=== PATIENT | female | born 1955 | race Caucasian/White ===

== ENCOUNTER 2018-03-04 01:05 | Observation (INO) | payer MEDICAID, OTHER ==
--- NOTE | 2018-03-04 02:04 | EDM.PDOC ---
ED HPI GENERAL MEDICAL PROBLEM - General Chief Complaint: Abdominal Pain Stated Complaint: ABDOMINAL PAIN Time Seen by Provider: 03/04/18 02:02 - History of Present Illness INITIAL COMMENTS - FREE TEXT/NARRATIVE: HISTORY AND PHYSICAL: History of present illness: Patient's a 62-year-old female who presents with lower abdominal discomfort after intercourse tonight she denies any other concerns been no fever chills nausea vomiting no other trauma or concern Review of systems: As per history of present illness and below otherwise all systems reviewed and negative. Past medical history: As per history of present illness and as reviewed below otherwise noncontributory. Surgical history: As per history of present illness and as reviewed below otherwise noncontributory. Social history: No reported history of drug or alcohol abuse. Family history: As per history of present illness and as reviewed below otherwise noncontributory. Physical exam: HEENT: Atraumatic, normocephalic, pupils reactive, negative for conjunctival pallor or scleral icterus, mucous membranes moist, throat clear, neck supple, nontender, trachea midline. Lungs: Clear to auscultation, breath sounds equal bilaterally, chest nontender. Heart: S1S2, regular, negative for clicks, rubs, or JVD. Abdomen: Soft, nondistended, nonlocalized lower abdominal tenderness Negative for masses or hepatosplenomegaly. Negative for costovertebral tenderness. Pelvis: Stable nontender. Genitourinary: Deferred. Rectal: Deferred. Extremities: Atraumatic, negative for cords or calf pain. Neurovascular unremarkable. Neuro: Awake, alert, oriented. Cranial nerves II through XII unremarkable. Cerebellum unremarkable. Motor and sensory unremarkable throughout. Exam nonfocal. Diagnostics: CBC CMP CT abdomen and pelvis UA Therapeutics: None Impression: #1 medical screening exam #2 postcoital abdominal/pelvic pain #3 pelvic mass Definitive disposition and diagnosis as appropriate pending reevaluation and review of above. 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 ED EXAM, GENERAL - Physical Exam Exam: See Below (See dictation) Course - Vital Signs Last Recorded V/S: Last Vital Signs Temp 36.1 C 03/04/18 01:05 Pulse 83 03/04/18 01:05 Resp 22 H 03/04/18 01:05 BP 124/90 03/04/18 01:05 Pulse Ox 96 03/04/18 01:05 - Orders/Labs/Meds Orders: Active Orders 24 hr Category Date Time Status Abdomen Pelvis wo Cont [CT] Stat Exams 03/04/18 01:10 Taken CULTURE URINE [RM] Stat Lab 03/04/18 02:15 Ordered DRUG SCREEN, URINE [URCHEM] Stat Lab 03/04/18 02:15 Ordered UA W/MICROSCOPIC [URIN] Stat Lab 03/04/18 02:15 Ordered Labs: Laboratory Tests 03/04/18 03/04/18 03/04/18 Range/Units 01:10 01:10 02:15 WBC 10.79 (4.0-11.0) K/uL RBC 4.79 (4.30-5.90) M/uL Hgb 14.1 (12.0-16.0) g/dL Hct 42.8 (36.0-46.0) % MCV 89.4 (80.0-98.0) fL MCH 29.4 (27.0-32.0) pg MCHC 32.9 (31.0-37.0) g/dL RDW Std Deviation 41.8 (28.0-62.0) fl RDW Coeff of Clarence 13 (11.0-15.0) % Plt Count 365 (150-400) K/uL MPV 9.30 (7.40-12.00) fL Neut % (Auto) 46.1 L (48.0-80.0) % Lymph % (Auto) 39.0 (16.0-40.0) % [place] % (Auto) 9.2 (0.0-15.0) % Eos % (Auto) 4.9 (0.0-7.0) % Baso % (Auto) 0.8 (0.0-1.5) % Neut # (Auto) 5.0 (1.4-5.7) K/uL Lymph # (Auto) 4.2 H (0.6-2.4) K/uL [place] # (Auto) 1.0 H (0.0-0.8) K/uL Eos # (Auto) 0.5 (0.0-0.7) K/uL Baso # (Auto) 0.1 (0.0-0.1) K/uL Sodium 141 (136-145) mmol/L Potassium 4.2 (3.5-5.1) mmol/L Chloride 105 (98-107) mmol/L Carbon Dioxide 25.7 (21.0-32.0) mmol/L BUN 24 H (7.0-18.0) mg/dL Creatinine 1.1 H (0.6-1.0) mg/dL Est Cr Clr Drug Dosing TNP Estimated GFR (MDRD) 50.5 ml/min Glucose 108 H (74-106) mg/dL Calcium 9.3 (8.5-10.1) mg/dL Total Bilirubin 0.3 (0.2-1.0) mg/dL AST 26 (15-37) IU/L ALT 20 (14-63) IU/L Alkaline Phosphatase 96 (46-116) U/L Total Protein 6.9 (6.4-8.2) g/dL Albumin 3.3 L (3.4-5.0) g/dL Globulin 3.6 H (2.0-3.5) g/dL Albumin/Globulin Ratio 0.9 L (1.3-2.8) Urine Color YELLOW Urine Appearance SLT CLOUDY Urine pH 5.5 (5.0-8.0) Ur Specific [place] 1.025 (1.001-1.035) Urine Protein NEGATIVE (NEGATIVE) mg/dL Urine Glucose (UA) NEGATIVE (NEGATIVE) mg/dL Urine Ketones NEGATIVE (NEGATIVE) mg/dL Urine Occult Blood TRACE-LYSED (NEGATIVE) Urine Nitrite NEGATIVE (NEGATIVE) Urine Bilirubin NEGATIVE (NEGATIVE) Urine Urobilinogen 0.2 (<2.0) EU/dL Ur Leukocyte Esterase TRACE (NEGATIVE) Urine RBC 0-3 (0-2/HPF) Urine WBC 3-5 (0-5/HPF) Ur Epithelial Cells MODERATE (NONE-FEW) Urine Bacteria FEW (NEGATIVE) Urine Opiates Screen (NEGATIVE) Ur Oxycodone Screen (NEGATIVE) Urine Methadone Screen (NEGATIVE) Ur Barbiturates Screen (NEGATIVE) Ur Phencyclidine Scrn (NEGATIVE) Ur Amphetamine Screen (NEGATIVE) U Methamphetamines Scrn (NEGATIVE) U Benzodiazepines Scrn (NEGATIVE) U Cocaine Metab Screen (NEGATIVE) U Marijuana (THC) Screen (NEGATIVE) 03/04/18 Range/Units 02:15 WBC (4.0-11.0) K/uL RBC (4.30-5.90) M/uL Hgb (12.0-16.0) g/dL Hct (36.0-46.0) % MCV (80.0-98.0) fL MCH (27.0-32.0) pg MCHC (31.0-37.0) g/dL RDW Std Deviation (28.0-62.0) fl RDW Coeff of [place] (11.0-15.0) % Plt Count (150-400) K/uL MPV (7.40-12.00) fL Neut % (Auto) (48.0-80.0) % Lymph % (Auto) (16.0-40.0) % [place] % (Auto) (0.0-15.0) % Eos % (Auto) (0.0-7.0) % Baso % (Auto) (0.0-1.5) % Neut # (Auto) (1.4-5.7) K/uL Lymph # (Auto) (0.6-2.4) K/uL [place] # (Auto) (0.0-0.8) K/uL Eos # (Auto) (0.0-0.7) K/uL Baso # (Auto) (0.0-0.1) K/uL Sodium (136-145) mmol/L Potassium (3.5-5.1) mmol/L Chloride (98-107) mmol/L Carbon Dioxide (21.0-32.0) mmol/L BUN (7.0-18.0) mg/dL Creatinine (0.6-1.0) mg/dL Est Cr Clr Drug Dosing Estimated GFR (MDRD) ml/min Glucose (74-106) mg/dL Calcium (8.5-10.1) mg/dL Total Bilirubin (0.2-1.0) mg/dL AST (15-37) IU/L ALT (14-63) IU/L Alkaline Phosphatase (46-116) U/L Total Protein (6.4-8.2) g/dL Albumin (3.4-5.0) g/dL Globulin (2.0-3.5) g/dL Albumin/Globulin Ratio (1.3-2.8) Urine Color Urine Appearance Urine pH (5.0-8.0) Ur Specific [place] (1.001-1.035) Urine Protein (NEGATIVE) mg/dL Urine Glucose (UA) (NEGATIVE) mg/dL Urine Ketones (NEGATIVE) mg/dL Urine Occult Blood (NEGATIVE) Urine Nitrite (NEGATIVE) Urine Bilirubin (NEGATIVE) Urine Urobilinogen (<2.0) EU/dL Ur Leukocyte Esterase (NEGATIVE) Urine RBC (0-2/HPF) Urine WBC (0-5/HPF) Ur Epithelial Cells (NONE-FEW) Urine Bacteria (NEGATIVE) Urine Opiates Screen NEGATIVE (NEGATIVE) Ur Oxycodone Screen NEGATIVE (NEGATIVE) Urine Methadone Screen NEGATIVE (NEGATIVE) Ur Barbiturates Screen NEGATIVE (NEGATIVE) Ur Phencyclidine Scrn NEGATIVE (NEGATIVE) Ur Amphetamine Screen NEGATIVE (NEGATIVE) U Methamphetamines Scrn POSITIVE (NEGATIVE) U Benzodiazepines Scrn NEGATIVE (NEGATIVE) U Cocaine Metab Screen NEGATIVE (NEGATIVE) U Marijuana (THC) Screen NEGATIVE (NEGATIVE) Departure - Departure Time of Disposition: 03:24 Disposition: Refer to Observation Condition: Good Clinical Impression: Pelvic mass, Substance abuse - Discharge Information Referrals: PCP,None [Primary Care Provider] - Forms: ED Department Discharge - My Orders Last 24 Hours: My Active Orders 03/04/18 01:10 Abdomen Pelvis wo Cont [CT] Stat 03/04/18 02:15 CULTURE URINE [RM] Stat DRUG SCREEN, URINE [URCHEM] Stat UA W/MICROSCOPIC [URIN] Stat - Assessment/Plan Last 24 Hours: My Active Orders 03/04/18 01:10 Abdomen Pelvis wo Cont [CT] Stat 03/04/18 02:15 CULTURE URINE [RM] Stat DRUG SCREEN, URINE [URCHEM] Stat UA W/MICROSCOPIC [URIN] Stat
[2018-03-04 02:06] LABS: CHLORIDE,CL 105 mmol/L (98-107); SODIUM,NA 141 mmol/L (136-145)
[2018-03-04] MEDS ORDERED: Acetaminophen 325 MG Tab PO PRN (07:31)
[2018-03-04] MEDS ORDERED: Ondansetron 4 MG Tab.DIS PO PRN (07:31)
[2018-03-04] MEDS ORDERED: Sodium Chloride 0.9% 2.5 ML Syringe FLUSH PRN (07:31)
[2018-03-04] MEDS ORDERED: Albuterol 8 GM Inhaler INH PRN (07:33)
--- NOTE | 2018-03-04 07:36 | PCM.HP ---
H&P History of Present Illness - General Date of Service: 03/04/18 Admit Problem/Dx: Admission Diagnosis/Problem Admission Diagnosis/Problem Pelvic mass Source of Information: Patient History Limitations: Reports: No Limitations - History of Present Illness Initial Comments - Free Text/Narative: This 62 year old female, , with pmh of tobacco abuse, substance abuse, and asthma presented to the ED with concerns of lower abdominal and pelvic pain post intercourse with her last night. She reports there was no pelvic pain during intercourse, it was after when she got up to eat and sat down to eat at the table. The pain was sharp shooting initially and spread across her lower abdomen. She denies vaginal discharge, bleeding or pain prior to this and none after either. She denies any pain prior to this, no constipation, diarrhea , fevers, chills, URI or chest pain. She reports chronic cough, she has smoked 1 -2 ppd since she was 17 years ago. She denies black or blood BMs. Denies surgeries, but has scar below umbilicus, which she has no idea wheat that is from. She reports her last pelvic/pap was 14 months ago in [place], [place], she doesn't know the name of the provider or clinic. She reports that was normal. She otherwise states her last women's health check up was 6-7 years ago. 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 She denies alcohol use. Reports smoking methamphetamine use 6 days ago and prior to the 12 months ago. Denies ever injecting any recreational drugs. Denies DM or cardiac disease. In the ED CBC WNL. BUN 24, Cr 1.1. UA negative. U tox positive for methamphetamines. VS stable. Abd/pelvis CT WO contrast revealed "13.2 x 11.7 x 13.5 cm mass in the pelvis on the right side, worrisome for ovarian mass. A pelvic ultrasound may be helpful to further evaluate this." She was admitted for Pelvic mass. No PCP in area. She is originally from [place], but moved her 3-4 days ago to be with her who is working here. She plans on staying her for the foreseeable future. And would like to establish care here. suprapubic Pain Score (Numeric/FACES): 8 - Related Data Allergies/Adverse Reactions: Allergies Allergy/AdvReac Type Severity Reaction Status Date / Time codeine Allergy Airway Verified 03/04/18 03:59 Tightness Home Medications: Home Meds Acetaminophen [Tylenol] 650 mg PO Q4H PRN tablet 03/04/18 [Rx] Albuterol [Ventolin HFA] 1 puff INH ASDIRECTED PRN 03/04/18 [History] Past Medical History HEENT History: Reports: Cataract Cardiovascular History: Reports: None. Denies: CAD, High Cholesterol, Hypertension, IA Respiratory History: Reports: Asthma. 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 Denies: Dysfunctional Uterine Bleeding : 3 Para: 3 Musculoskeletal History: Reports: None Neurological History: Reports: Migraines. Denies: CVA, TIA Psychiatric History: Reports: None Endocrine/Metabolic History: Reports: Obesity/BMI 30+. Denies: Diabetes, Type II, Hypothyroidism Hematologic History: Reports: None Immunologic History: Reports: None Oncologic (Cancer) History: Reports: None Dermatologic History: Reports: Other (See Below) Other Dermatologic History: Mass to right side of back removed X 2 years ago. - Infectious Disease History Infectious Disease History: Reports: None - Past Surgical History Head Surgeries/Procedures: Reports: None HEENT Surgical History: Reports: Cataract Surgery Cardiovascular Surgical History: Reports: None GI Surgical History: Reports: Colonoscopy Female Surgical History: Reports: None Endocrine Surgical History: Reports: None Neurological Surgical History: Reports: None Musculoskeletal Surgical History: Reports: None Dermatological Surgical History: Reports: None Social & Family History - Family History OBGYN: Reports: Other (See Below) Other OBGYN Family History: Mother of cervical cancer. Oncologic: Reports: Cervix (Mother.) - Tobacco Use Smoking Status *Q: Current Every Day Smoker Years of Tobacco use: 48 Packs/Tins Daily: 0.5 Used Tobacco, but Quit: No - Caffeine Use Caffeine Use: Reports: Coffee - Recreational Drug Use Recreational Drug Use: Yes Drug Use in Last 12 Months: Yes Recreational Drug Type: Reports: Methamphetamine Other Recreational Drug Type: Used X 5 days ago Recreational Drug Use Frequency: Weekly Recreational Drug Last Use: 6-2-17 H&P Review of Systems - Review of Systems: Review Of Systems: See Below General: Reports: No Symptoms. Denies: Fever, Chills, Malaise, Weakness, Fatigue HEENT: Reports: No Symptoms. Denies: Sinus Congestion, Sore Throat, Vertigo, Visual Changes Pulmonary: Reports: Cough (chronic). Denies: Shortness of Breath Cardiovascular: Reports: No Symptoms. Denies: Chest Pain, Palpitations, Edema, Lightheadedness Gastrointestinal: Reports: Abdominal Pain (lower abdomen, dull 2/10 currently). Denies: Black Stool, Bloody Stool, Decreased Appetite, Nausea Genitourinary: Reports: No Symptoms. Denies: Dysuria, Frequency, Burning, Pain , Urgency, Hematuria, Discharge, Dysmenorrhea Musculoskeletal: Reports: No Symptoms Skin: Reports: No Symptoms Psychiatric: Reports: No Symptoms Neurological: Reports: No Symptoms Hematologic/Lymphatic: Reports: No Symptoms Immunologic: Reports: No Symptoms Exam - Exam Exam: See Below - Vital Signs Vital Signs: Last Vital Signs Temp 98.1 F 03/04/18 03:43 Pulse 83 03/04/18 03:43 Resp 16 03/04/18 03:43 BP 120/94 H 03/04/18 03:43 Pulse Ox 95 03/04/18 03:43 Weight: 81.964 kg - Exam General: Alert, Oriented, Cooperative HEENT: Conjunctiva Clear, Mucosa Moist & [place], Posterior Pharynx Clear, Other ( poor dentition and mutliple missing teeth) Lungs: Clear to Auscultation, Normal Respiratory Effort, Wheezing (scant wheezing) Cardiovascular: Regular Rate, Regular Rhythm, Normal S1, Normal S2 GI/Abdominal Exam: Normal Bowel Sounds, Soft, No Distention, No Mass (no palpable mass, excess body habitus limits assessment), Tender (slight tenderness to palpation of lower abdomen) Back Exam: Normal Inspection, Full Range of Motion, NT Extremities: Normal Inspection, Normal Range of Motion, Non-Tender, No Pedal Edema, Normal Capillary Refill Neuro Extensive - Mental Status: Alert, Oriented x3 Neuro Extensive - Motor, Sensory, Reflexes: CN II-XII Intact, Normal Gait Psychiatric: Alert, Normal Affect, Normal Mood - Patient Data Lab Results Last 24 hrs: Laboratory Results - last 24 hr 03/04/18 03/04/18 03/04/18 Range/Units 01:10 01:10 02:15 WBC 10.79 (4.0-11.0) K/uL RBC 4.79 (4.30-5.90) M/uL Hgb 14.1 (12.0-16.0) g/dL Hct 42.8 (36.0-46.0) % MCV 89.4 (80.0-98.0) fL MCH 29.4 (27.0-32.0) pg MCHC 32.9 (31.0-37.0) g/dL RDW Std Deviation 41.8 (28.0-62.0) fl RDW Coeff of [place] 13 (11.0-15.0) % Plt Count 365 (150-400) K/uL MPV 9.30 (7.40-12.00) fL Neut % (Auto) 46.1 L (48.0-80.0) % Lymph % (Auto) 39.0 (16.0-40.0) % [place] % (Auto) 9.2 (0.0-15.0) % Eos % (Auto) 4.9 (0.0-7.0) % Baso % (Auto) 0.8 (0.0-1.5) % Neut # (Auto) 5.0 (1.4-5.7) K/uL Lymph # (Auto) 4.2 H (0.6-2.4) K/uL [place] # (Auto) 1.0 H (0.0-0.8) K/uL Eos # (Auto) 0.5 (0.0-0.7) K/uL Baso # (Auto) 0.1 (0.0-0.1) K/uL Sodium 141 (136-145) mmol/L Potassium 4.2 (3.5-5.1) mmol/L Chloride 105 (98-107) mmol/L Carbon Dioxide 25.7 (21.0-32.0) mmol/L BUN 24 H (7.0-18.0) mg/dL Creatinine 1.1 H (0.6-1.0) mg/dL Est Cr Clr Drug Dosing TNP Estimated GFR (MDRD) 50.5 ml/min Glucose 108 H (74-106) mg/dL Calcium 9.3 (8.5-10.1) mg/dL Total Bilirubin 0.3 (0.2-1.0) mg/dL AST 26 (15-37) IU/L ALT 20 (14-63) IU/L Alkaline Phosphatase 96 (46-116) U/L Total Protein 6.9 (6.4-8.2) g/dL Albumin 3.3 L (3.4-5.0) g/dL Globulin 3.6 H (2.0-3.5) g/dL Albumin/Globulin Ratio 0.9 L (1.3-2.8) Urine Color YELLOW Urine Appearance SLT CLOUDY Urine pH 5.5 (5.0-8.0) Ur Specific [place] 1.025 (1.001-1.035) Urine Protein NEGATIVE (NEGATIVE) mg/dL Urine Glucose (UA) NEGATIVE (NEGATIVE) mg/dL Urine Ketones NEGATIVE (NEGATIVE) mg/dL Urine Occult Blood TRACE-LYSED (NEGATIVE) Urine Nitrite NEGATIVE (NEGATIVE) Urine Bilirubin NEGATIVE (NEGATIVE) Urine Urobilinogen 0.2 (<2.0) EU/dL Ur Leukocyte Esterase TRACE (NEGATIVE) Urine RBC 0-3 (0-2/HPF) Urine WBC 3-5 (0-5/HPF) Ur Epithelial Cells MODERATE (NONE-FEW) Urine Bacteria FEW (NEGATIVE) Urine Opiates Screen (NEGATIVE) Ur Oxycodone Screen (NEGATIVE) Urine Methadone Screen (NEGATIVE) Ur Barbiturates Screen (NEGATIVE) Ur Phencyclidine Scrn (NEGATIVE) Ur Amphetamine Screen (NEGATIVE) U Methamphetamines Scrn (NEGATIVE) U Benzodiazepines Scrn (NEGATIVE) U Cocaine Metab Screen (NEGATIVE) U Marijuana (THC) Screen (NEGATIVE) 03/04/18 Range/Units 02:15 WBC (4.0-11.0) K/uL RBC (4.30-5.90) M/uL Hgb (12.0-16.0) g/dL Hct (36.0-46.0) % MCV (80.0-98.0) fL MCH (27.0-32.0) pg MCHC (31.0-37.0) g/dL RDW Std Deviation (28.0-62.0) fl RDW Coeff of [place] (11.0-15.0) % Plt Count (150-400) K/uL MPV (7.40-12.00) fL Neut % (Auto) (48.0-80.0) % Lymph % (Auto) (16.0-40.0) % [place] % (Auto) (0.0-15.0) % Eos % (Auto) (0.0-7.0) % Baso % (Auto) (0.0-1.5) % Neut # (Auto) (1.4-5.7) K/uL Lymph # (Auto) (0.6-2.4) K/uL [place] # (Auto) (0.0-0.8) K/uL Eos # (Auto) (0.0-0.7) K/uL Baso # (Auto) (0.0-0.1) K/uL Sodium (136-145) mmol/L Potassium (3.5-5.1) mmol/L Chloride (98-107) mmol/L Carbon Dioxide (21.0-32.0) mmol/L BUN (7.0-18.0) mg/dL Creatinine (0.6-1.0) mg/dL Est Cr Clr Drug Dosing Estimated GFR (MDRD) ml/min Glucose (74-106) mg/dL Calcium (8.5-10.1) mg/dL Total Bilirubin (0.2-1.0) mg/dL AST (15-37) IU/L ALT (14-63) IU/L Alkaline Phosphatase (46-116) U/L Total Protein (6.4-8.2) g/dL Albumin (3.4-5.0) g/dL Globulin (2.0-3.5) g/dL Albumin/Globulin Ratio (1.3-2.8) Urine Color Urine Appearance Urine pH (5.0-8.0) Ur Specific [place] (1.001-1.035) Urine Protein (NEGATIVE) mg/dL Urine Glucose (UA) (NEGATIVE) mg/dL Urine Ketones (NEGATIVE) mg/dL Urine Occult Blood (NEGATIVE) Urine Nitrite (NEGATIVE) Urine Bilirubin (NEGATIVE) Urine Urobilinogen (<2.0) EU/dL Ur Leukocyte Esterase (NEGATIVE) Urine RBC (0-2/HPF) Urine WBC (0-5/HPF) Ur Epithelial Cells (NONE-FEW) Urine Bacteria (NEGATIVE) Urine Opiates Screen NEGATIVE (NEGATIVE) Ur Oxycodone Screen NEGATIVE (NEGATIVE) Urine Methadone Screen NEGATIVE (NEGATIVE) Ur Barbiturates Screen NEGATIVE (NEGATIVE) Ur Phencyclidine Scrn NEGATIVE (NEGATIVE) Ur Amphetamine Screen NEGATIVE (NEGATIVE) U Methamphetamines Scrn POSITIVE (NEGATIVE) U Benzodiazepines Scrn NEGATIVE (NEGATIVE) U Cocaine Metab Screen NEGATIVE (NEGATIVE) U Marijuana (THC) Screen NEGATIVE (NEGATIVE) Result Diagrams: 03/04/18 01:10 03/04/18 01:10 - Problem List (1) Abdominal pain SNOMED Code(s): 98069095 ICD Code: R10.9 - UNSPECIFIED ABDOMINAL PAIN Status: Acute Current Visit : Yes Qualifiers: Abdominal location: lower abdomen, unspecified Qualified Code(s): R10.30 - Lower abdominal pain, unspecified (2) Pelvic mass SNOMED Code(s): 37217243 ICD Code: R19.00 - INTRA-ABD AND PELVIC SWELLING, MASS AND LUMP, UNSP SITE Status: Acute Current Visit: Yes (3) Tobacco abuse SNOMED Code(s): 234539580 ICD Code: Z72.0 - TOBACCO USE Status: Chronic Current Visit: Yes (4) Asthma SNOMED Code(s): 230707621 ICD Code: J45.909 - UNSPECIFIED ASTHMA, UNCOMPLICATED Status: Chronic Current Visit: Yes Qualifiers: Asthma severity: mild Asthma persistence: intermittent Asthma complication type: uncomplicated Qualified Code(s): J45.20 - Mild intermittent asthma, uncomplicated (5) Substance abuse SNOMED Code(s): 68893867 ICD Code: F19.10 - OTHER PSYCHOACTIVE SUBSTANCE ABUSE, UNCOMPLICATED Status : Chronic Current Visit: Yes Problem List Initiated/Reviewed/Updated: Yes Orders Last 24hrs: Active Orders 24 hr Category Date Time Status Patient Status [ADT] Stat ADT 03/04/18 03:28 Active Intake and Output [RC] QSHIFT Care 03/04/18 07:31 Active May Shower [RC] ASDIRECTED Care 03/04/18 07:31 Active Oxygen Therapy [RC] PRN Care 03/04/18 07:31 Active Up With Assistance [RC] ASDIRECTED Care 03/04/18 07:31 Active Vital Signs [RC] Q4H Care 03/04/18 07:31 Active Regular Diet [DIET] Diet 03/04/18 Breakfast Active Abdomen Pelvis wo Cont [CT] Stat Exams 03/04/18 01:10 Taken CULTURE URINE [RM] Stat Lab 03/04/18 02:15 Ordered DRUG SCREEN, URINE [URCHEM] Stat Lab 03/04/18 02:15 Ordered UA W/MICROSCOPIC [URIN] Stat Lab 03/04/18 02:15 Ordered Acetaminophen [Tylenol] Med 03/04/18 07:31 Ordered 650 mg PO Q4H PRN Albuterol [Ventolin HFA] Med 03/04/18 07:33 Ordered DOSE gm INH ASDIRECTED PRN Ondansetron [Zofran ODT] Med 03/04/18 07:31 Ordered 4 mg PO Q4H PRN Sodium Chloride 0.9% [Saline Flush] Med 03/04/18 07:31 Ordered 2.5 ml FLUSH ASDIRECTED PRN Saline Lock Insert [OM.PC] Routine Oth 03/04/18 07:31 Ordered Sequential Compression Device [OM.PC] Per Unit Routine Oth 03/04/18 07:32 Ordered Resuscitation Status Routine Resus Stat 03/04/18 07:31 Ordered Medication Orders Acetaminophen (Tylenol) 650 mg PO Q4H PRN PRN Reason: Pain (mild 1-3) Albuterol (Ventolin Hfa) 8 gm INH ASDIRECTED PRN PRN Reason: Dyspnea Ondansetron HCl (Zofran Odt) 4 mg PO Q4H PRN PRN Reason: nausea, able to take PO Sodium Chloride (Saline Flush) 2.5 ml FLUSH ASDIRECTED PRN PRN Reason: Keep Vein Open Assessment/Plan Comment:: This 62 year old female admitted with lower abdominal pain, found to have pelvic mass. 1. Pelvic mass: Pain is improved. Has not needed any medication for pain and is denying needing anything now. Spoke with Dr Espinosa, [employer] FI[employer] SERVICE TECHNICIAN, recommends CA 125 for now and he will see patient in between surgical cases. I appreciated his consultation with this patient. 2. Asthma: Stable. Has chronic cough. Continue inhaler PRN. 3. Tobacco abuse: Counseled on smoking cessation, doesn't feel like quitting now and declined nicotine patch reporting "They don't work." Educated on smoking policy while admitted in the hospital, she verbalized understanding. VTE prophylaxis: SCDs Dispo: potentially later today, after consultation with Dr Espinosa. Discharge Plan Discharge Diagnoses: Pelvic Mass Asthma Tobacco abuse Methamphetamine abuse Ofelia (Tabatha) was seen by Dr Espinosa. Will establish follow up appointment with Dr Espinosa. CA 125 normal, possible cystic in nature and Dr Espinosa recommends removal as outpatient. Tabatha agrees with this and is very eager to be discharged home. She does not need any pain medications and recommended to return to ED or clinic if concerns should arise. Tylenol for pain PRN. She was highly encouraged to stop smoking due to chronic cough. She reports she is trying slowly but declines assistance with this at this time.
--- NOTE | 2018-03-04 10:52 | CT ---
EXAM DATE: 03/04/18 PATIENT'S AGE: 62 Patient: ANABELA HALL Facility: [place], [place] Site . Site : 1955 Study: CT Abdomen/Pelvis [id number]/7/2018 2:41:50 AM Ordering Physician: Gareth Escalera Final Report: INDICATION: Abdominal pain. TECHNIQUE: Multiple axial images were obtained from the diaphragm to the symphysis pubis without contrast. Sagittal and coronal re-formatted images were obtained. COMPARISON: None. FINDINGS: The visualized portion of the lung bases are clear. The liver, spleen, pancreas , gallbladder and adrenal glands are of unremarkable nonenhanced CT appearance. There is no stone identified in the kidneys or hydronephrosis. There is no evidence of a bowel obstruction. There is a moderate amount of stool in the colon. The abdominal aorta is normal in caliber. There are atherosclerotic calcifications. There is no adenopathy. There are degenerative changes in the spine with grade 1 spondylolysis of L4 on L5. There is a 13.2 x 11.7 x 13.5 cm mass in the right the pelvis which is likely ovarian. The appendix is visualized in the right lower quadrant and is unremarkable. IMPRESSION: 13.2 x 11.7 x 13.5 cm mass in the pelvis on the right side, worrisome for ovarian mass. A pelvic ultrasound may be helpful to further evaluate this. Dictated by Noe Montero MD @ 03/04/2018 3:12:31 AM Please note that all CT scans at this facility use dose modulation, iterative reconstruction, and/or weight-based dosing when appropriate to reduce radiation dose to as low as reasonably achievable. Dictated by: Noe Montero MD @ 03/04/2018 03:12:46 (Electronic Signature) Report Signed by Proxy. [facility]
--- NOTE | 2018-03-05 12:48 | CONS ---
DATE OF CONSULTATION: 03/04/2018 DATE OF : 1955 PRIMARY CARE PHYSICIAN: None PCP REQUESTING PHYSICIAN: Farhat Parra MD This patient is 62-year-old patient, she is para 3-0-0-3, all of them delivered by normal spontaneous vaginal delivery. She recently moved to our area. She is admitted through the emergency room for sudden onset of pelvic pain. The patient is evaluated in the emergency room. She had a CAT scan, which shows a rather large 15 cm right ovarian mass. The patient is admitted for observation. The pain is relieved with pain medication and her symptoms resolved. At the time I was consulted and examined the patient, her vital sign was stable. Her abdomen is nontender and there is no rebound tenderness, although you can feel a mass in the right lower quadrant. I did not do pelvic examination because of not availability of pelvic examination room in the Med/Surg. However, I was planning to do that tomorrow and I see her in the office. I referred for the purpose of this consultation, I reviewed the CAT scan for the patient which confirmed that she had a 15-cm clear, multiseptated ovarian mass arising from the right ovary. There is no ascites. The mass is not adherent or attached to any of the abdominal or pelvic organ. Her CA-125 is 11. 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 However, we cannot rule out cyst adenocarcinoma, but it is most likely that the patient has a cyst adenoma and this mass needs to be removed. She can have her surgery scheduled electively. I recommend for her at this time to be discharged. There is not any other medical issue and to be seen in the office before we can further evaluate her by doing a pelvic exam and then schedule her for surgery electively. MERCEDES / JOSE MIGUEL /[id number]
== END 2018-03-04 10:20 | disposition home or self-care (01) ==
LOC: MW.ED 01:05 → MW.MS 03:28
PROVIDERS: ADMIT Internal Medicine; ATTEND Internal Medicine
DX: R10.30 Lower abdominal pain, unspecified (principal); R19.00 Intra-abdominal and pelvic swelling, mass and lump, unspecified site; J45.20 Mild intermittent asthma, uncomplicated; F19.10 Other psychoactive substance abuse, uncomplicated; K21.9 Gastro-esophageal reflux disease without esophagitis; G43.909 Migraine, unspecified, not intractable, without status migrainosus; E66.9 Obesity, unspecified; F17.210 Nicotine dependence, cigarettes, uncomplicated; Z88.5 Allergy status to narcotic agent; Z68.30 Body mass index [BMI] 30.0-30.9, adult
CPT/HCPCS: 74176; 74176-26; 80053; 80305; 81001; 85025; 86304; 99283; 99285-25; G0378

== ENCOUNTER 2018-03-16 18:05 | Emergency (ER) | payer MEDICAID ==
--- NOTE | 2018-03-16 18:58 | EDM.PDOC ---
ED HPI GENERAL MEDICAL PROBLEM - General Chief Complaint: General Stated Complaint: CRAMPING REALLY BAD Time Seen by Provider: 03/16/18 18:58 Source of Information: Reports: Patient History Limitations: Reports: No Limitations - History of Present Illness INITIAL COMMENTS - FREE TEXT/NARRATIVE: HISTORY AND PHYSICAL: History of present illness: 62-year-old female presenting to emergency department with right lower quadrant pain starting last evening with previously known finding of a large ovarian mass as well as methamphetamine abuse. Patient was recently admitted here at the beginning of the month for abdominal pain was found to have a ovarian mass by CT. Labs showed that this was a nonmalignant tumor and she is scheduled to have surgery done Dr. Espinosa on April 01. Patient states that last night around 11 PM she had sharp stabbing pain in her right lower quadrant with some radiation to right mid and umbilical. Previously she did not have this pain but had some cramping initially when she came in and was found to have a ovarian mass. States that the pain is different and it is intermittent like "cramping". Has had 2 days of diarrhea having 3 watery stools yesterday and 2 watery stools today. She denies any recent foreign travel, change in diet, or other members of family having similar symptoms. There is no blood in the stool or dark tarry stools. She denies any associated fever but has been sweaty. She denies any nausea or vomiting. She currently denies any chest pain, palpitations, shortness of breath, syncopal episodes, focal neurologic deficits. Current pain is 8 out of 10. Patient is allergic to codeine. Review of systems: As per history of present illness and below otherwise all systems reviewed and negative. Past medical history: As per history of present illness and as reviewed below otherwise noncontributory. Surgical history: As per history of present illness and as reviewed below otherwise noncontributory. Social history: No reported history of drug or alcohol abuse. Family history: As per history of present illness and as reviewed below otherwise noncontributory. Physical exam: HEENT: Atraumatic, normocephalic, pupils reactive, negative for conjunctival pallor or scleral icterus, mucous membranes moist, throat clear, neck supple, nontender, trachea midline. Lungs: Clear to auscultation, breath sounds equal bilaterally, chest nontender. Heart: S1S2, regular, negative for clicks, rubs, or JVD. Abdomen: Tender to palpation right lower quadrant as well as right mid and umbilical, Soft, there is noted some fullness in the right midabdomen. no hepatosplenomegaly. Negative for costovertebral tenderness. Pelvis: Stable nontender. Genitourinary: Deferred. Rectal: Deferred. Extremities: Atraumatic, negative for cords or calf pain. Neurovascular unremarkable. Neuro: Awake, alert, oriented. Cranial nerves II through XII unremarkable. Cerebellum unremarkable. Motor and sensory unremarkable throughout. Exam nonfocal. Diagnostics: CBC, CMP, UA/UC, abdominal CT with contrast Therapeutics: Toradol 60 mg IM 1, 1 L normal saline 1, Bentyl 20 mg by mouth 4 times a day # 12 Impression: Right adnexal mass 15.7 x 12.2 15.3 cm Abdominal pain Plan: CBC, CMP, UA were unremarkable. CT did show a large heterogeneous abdominal pelvic mass consistent with what was thought to be a neoplasm as per radiologist however patient's CA-125 previously had been negative and she is scheduled for surgery by Dr. Espinosa on 04/01/18. There is no evidence of appendicitis, diverticulitis, or bowel perforation. Patient's pain was likely secondary to her gynecologic mass. She improved dramatically with Toradol 60 mg IM and was discharged with a prescription for Bentyl 20 mg by mouth 4 times a day #12. She is instructed to follow-up with primary care physician as well as return to emergency department if she had any new or worsening symptoms. Pelvic Pain Score (Numeric/FACES): 9 - Related Data Allergies Allergy/AdvReac Type Severity Reaction Status Date / Time codeine Allergy Airway Verified 03/16/18 18:17 Tightness Home Meds: Home Meds Acetaminophen [Tylenol] 650 mg PO Q4H PRN tablet 03/04/18 [Rx] Albuterol [Ventolin HFA] 1 puff INH ASDIRECTED PRN 03/04/18 [History] Naproxen Na-Diphenhydramin HCl [Aleve Pm Caplet] 1 tab PO QPM 03/16/18 [History] Past Medical History HEENT History: Reports: Cataract Cardiovascular History: Reports: None Respiratory History: Reports: Asthma Gastrointestinal History: Reports: GERD Genitourinary History: Reports: None [employer] 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 - Infectious Disease History Infectious Disease History: Reports: None - Past Surgical History Head Surgeries/Procedures: Reports: None HEENT Surgical History: Reports: Cataract Surgery Cardiovascular Surgical History: Reports: None GI Surgical History: Reports: Colonoscopy Female Surgical History: Reports: None Endocrine Surgical History: Reports: None Neurological Surgical History: Reports: None Musculoskeletal Surgical History: Reports: None Dermatological Surgical History: Reports: None Social & Family History - Family History Family Medical History: Noncontributory : Reports: Other (See Below) Other Family History: mother cervical cancer OBGYN: Reports: Other (See Below) Other OBGYN Family History: Mother of cervical cancer. Oncologic: Reports: Cervix - Tobacco Use Smoking Status *Q: Former Smoker Used Tobacco, but Quit: Yes Month/Year Tobacco Last Used: 02/2018 Tobacco Use Comment: started patches yesterday - Caffeine Use Caffeine Use: Reports: Coffee - Recreational Drug Use Recreational Drug Use: Yes Drug Use in Last 12 Months: Yes Recreational Drug Type: Reports: Methamphetamine ED ROS GENERAL - Review of Systems Review Of Systems: ROS reveals no pertinent complaints other than HPI. ED EXAM, GENERAL - Physical Exam Exam: See Below Course - Vital Signs Last Recorded V/S: Last Vital Signs Temp 97.8 F 03/16/18 21:13 Pulse 72 03/16/18 21:13 Resp 18 03/16/18 21:13 BP 124/87 03/16/18 21:13 Pulse Ox 95 03/16/18 21:13 - Orders/Labs/Meds Orders: Active Orders 24 hr Category Date Time Status EKG Documentation Completion [RC] STAT Care 03/16/18 19:12 Inactive Abdomen Pelvis wo Cont [CT] Stat Exams 03/16/18 20:28 Taken CULTURE URINE [RM] Stat Lab 03/16/18 19:27 Ordered UA W/MICROSCOPIC [URIN] Stat Lab 03/16/18 19:27 Ordered Labs: Laboratory Tests 03/16/18 03/16/18 03/16/18 Range/Units 19:27 19:40 19:40 WBC 12.21 H (4.0-11.0) K/uL RBC 5.01 (4.30-5.90) M/uL Hgb 14.8 (12.0-16.0) g/dL Hct 44.7 (36.0-46.0) % MCV 89.2 (80.0-98.0) fL MCH 29.5 (27.0-32.0) pg MCHC 33.1 (31.0-37.0) g/dL RDW Std Deviation 42.5 (28.0-62.0) fl RDW Coeff of Clarence 13 (11.0-15.0) % Plt Count 401 H (150-400) K/uL MPV 9.40 (7.40-12.00) fL Neut % (Auto) 58.1 (48.0-80.0) % Lymph % (Auto) 29.3 (16.0-40.0) % Reagan % (Auto) 7.9 (0.0-15.0) % Eos % (Auto) 3.9 (0.0-7.0) % Baso % (Auto) 0.8 (0.0-1.5) % Neut # (Auto) 7.1 H (1.4-5.7) K/uL Lymph # (Auto) 3.6 H (0.6-2.4) K/uL Reagan # (Auto) 1.0 H (0.0-0.8) K/uL Eos # (Auto) 0.5 (0.0-0.7) K/uL Baso # (Auto) 0.1 (0.0-0.1) K/uL Nucleated RBC % 0.0 /100WBC Nucleated RBCs # 0 K/uL Sodium 141 (136-145) mmol/L Potassium 4.9 (3.5-5.1) mmol/L Chloride 104 (98-107) mmol/L Carbon Dioxide 31.7 (21.0-32.0) mmol/L BUN 19 H (7.0-18.0) mg/dL Creatinine 1.1 H (0.6-1.0) mg/dL Est Cr Clr Drug Dosing 46.38 mL/min Estimated GFR (MDRD) 50.5 ml/min Glucose 99 (74-106) mg/dL Calcium 9.8 (8.5-10.1) mg/dL Total Bilirubin 0.2 (0.2-1.0) mg/dL AST 11 L (15-37) IU/L ALT 17 (14-63) IU/L Alkaline Phosphatase 126 H (46-116) U/L Total Protein 7.4 (6.4-8.2) g/dL Albumin 3.3 L (3.4-5.0) g/dL Globulin 4.1 H (2.0-3.5) g/dL Albumin/Globulin Ratio 0.8 L (1.3-2.8) Urine Color YELLOW Urine Appearance CLEAR Urine pH 6.0 (5.0-8.0) Ur Specific [place] 1.020 (1.001-1.035) Urine Protein NEGATIVE (NEGATIVE) mg/dL Urine Glucose (UA) NEGATIVE (NEGATIVE) mg/dL Urine Ketones NEGATIVE (NEGATIVE) mg/dL Urine Occult Blood NEGATIVE (NEGATIVE) Urine Nitrite NEGATIVE (NEGATIVE) Urine Bilirubin NEGATIVE (NEGATIVE) Urine Urobilinogen 0.2 (<2.0) EU/dL Ur Leukocyte Esterase NEGATIVE (NEGATIVE) Urine RBC 0-1 (0-2/HPF) Urine WBC 0-1 (0-5/HPF) Ur Epithelial Cells MODERATE (NONE-FEW) Urine Bacteria RARE (NEGATIVE) Urine Opiates Screen (NEGATIVE) Ur Oxycodone Screen (NEGATIVE) Urine Methadone Screen (NEGATIVE) Ur Barbiturates Screen (NEGATIVE) Ur Phencyclidine Scrn (NEGATIVE) Ur Amphetamine Screen (NEGATIVE) U Methamphetamines Scrn (NEGATIVE) U Benzodiazepines Scrn (NEGATIVE) U Cocaine Metab Screen (NEGATIVE) U Marijuana (THC) Screen (NEGATIVE) 03/16/18 Range/Units 19:45 WBC (4.0-11.0) K/uL RBC (4.30-5.90) M/uL Hgb (12.0-16.0) g/dL Hct (36.0-46.0) % MCV (80.0-98.0) fL MCH (27.0-32.0) pg MCHC (31.0-37.0) g/dL RDW Std Deviation (28.0-62.0) fl RDW Coeff of Clarence (11.0-15.0) % Plt Count (150-400) K/uL MPV (7.40-12.00) fL Neut % (Auto) (48.0-80.0) % Lymph % (Auto) (16.0-40.0) % Reagan % (Auto) (0.0-15.0) % Eos % (Auto) (0.0-7.0) % Baso % (Auto) (0.0-1.5) % Neut # (Auto) (1.4-5.7) K/uL Lymph # (Auto) (0.6-2.4) K/uL Reagan # (Auto) (0.0-0.8) K/uL Eos # (Auto) (0.0-0.7) K/uL Baso # (Auto) (0.0-0.1) K/uL Nucleated RBC % /100WBC Nucleated RBCs # K/uL Sodium (136-145) mmol/L Potassium (3.5-5.1) mmol/L Chloride (98-107) mmol/L Carbon Dioxide (21.0-32.0) mmol/L BUN (7.0-18.0) mg/dL Creatinine (0.6-1.0) mg/dL Est Cr Clr Drug Dosing mL/min Estimated GFR (MDRD) ml/min Glucose (74-106) mg/dL Calcium (8.5-10.1) mg/dL Total Bilirubin (0.2-1.0) mg/dL AST (15-37) IU/L ALT (14-63) IU/L Alkaline Phosphatase (46-116) U/L Total Protein (6.4-8.2) g/dL Albumin (3.4-5.0) g/dL Globulin (2.0-3.5) g/dL Albumin/Globulin Ratio (1.3-2.8) Urine Color Urine Appearance Urine pH (5.0-8.0) Ur Specific [place] (1.001-1.035) Urine Protein (NEGATIVE) mg/dL Urine Glucose (UA) (NEGATIVE) mg/dL Urine Ketones (NEGATIVE) mg/dL Urine Occult Blood (NEGATIVE) Urine Nitrite (NEGATIVE) Urine Bilirubin (NEGATIVE) Urine Urobilinogen (<2.0) EU/dL Ur Leukocyte Esterase (NEGATIVE) Urine RBC (0-2/HPF) Urine WBC (0-5/HPF) Ur Epithelial Cells (NONE-FEW) Urine Bacteria (NEGATIVE) Urine Opiates Screen NEGATIVE (NEGATIVE) Ur Oxycodone Screen NEGATIVE (NEGATIVE) Urine Methadone Screen NEGATIVE (NEGATIVE) Ur Barbiturates Screen NEGATIVE (NEGATIVE) Ur Phencyclidine Scrn NEGATIVE (NEGATIVE) Ur Amphetamine Screen NEGATIVE (NEGATIVE) U Methamphetamines Scrn NEGATIVE (NEGATIVE) U Benzodiazepines Scrn NEGATIVE (NEGATIVE) U Cocaine Metab Screen NEGATIVE (NEGATIVE) U Marijuana (THC) Screen NEGATIVE (NEGATIVE) Meds: Medications Discontinued Medications Generic Name Dose Route Start Last Admin Trade Name Freq PRN Reason Stop Dose Admin Sodium Chloride 1,000 mls @ 999 mls/hr 03/16/18 20:01 03/16/18 20:26 Normal Saline IV 03/16/18 21:01 999 mls/hr STAT ONE Administration Ketorolac Tromethamine 60 mg 03/16/18 19:18 03/16/18 19:48 Toradol IM 03/16/18 19:19 60 mg ONETIME ONE Administration Departure - Departure Time of Disposition: 21:26 Disposition: Home, Self-Care 01 Condition: Good Clinical Impression: Abdominal mass, RLQ (right lower quadrant), Abdominal pain, right lower quadrant - Discharge Information Referrals: PCP,None [Primary Care Provider] - Forms: ED Department Discharge Additional Instructions: My general discharge The following information is given to patients seen in the emergency department who are being discharged to home. This information is to outline your options for follow-up care. We provide all patients seen in our emergency department with a follow-up referral. The need for follow-up, as well as the timing and circumstances, are variable depending upon the specifics of your emergency department visit. If you don't have a primary care physician on staff, we will provide you with a referral. We always advise you to contact your personal physician following an emergency department visit to inform them of the circumstance of the visit and for follow-up with them and/or the need for any referrals to a consulting specialist. The emergency department will also refer you to a specialist when appropriate. This referral assures that you have the opportunity for follow-up care with a specialist. All of these measure are taken in an effort to provide you with optimal care, which includes your follow-up. Under all circumstances we always encourage you to contact your private physician who remains a resource for coordinating your care. When calling for follow-up care, please make the office aware that this follow-up is from your recent emergency room visit. If for any reason you are refused follow-up, please contact the [facility] Emergency Department at and asked to speak to the emergency department charge nurse. [facility] [address] [place] [id number] Follow-up with Dr. Espinosa as scheduled. Take medication as prescribed. Return to emergency department if any new or worsening symptoms. - My Orders Last 24 Hours: My Active Orders 03/16/18 19:12 EKG Documentation Completion [RC] STAT 03/16/18 19:27 CULTURE URINE [RM] Stat UA W/MICROSCOPIC [URIN] Stat 03/16/18 20:28 Abdomen Pelvis wo Cont [CT] Stat - Assessment/Plan Last 24 Hours: My Active Orders 03/16/18 19:12 EKG Documentation Completion [RC] STAT 03/16/18 19:27 CULTURE URINE [RM] Stat UA W/MICROSCOPIC [URIN] Stat 03/16/18 20:28 Abdomen Pelvis wo Cont [CT] Stat
[2018-03-16] MEDS ORDERED: Ketorolac 60 MG/2 ML SDV IM ONE (19:18)
[2018-03-16] MEDS ORDERED: Sodium Chloride 0.9% 1,000 ML IV ONE (20:01)
--- NOTE | 2018-03-17 08:42 | CT ---
EXAM DATE: 03/16/18 PATIENT'S AGE: 62 Patient: ANABELA HALL Facility: [place], [place] Site . Site : 1955 Study: CT Abdomen/Pelvis [id number]/19/2018 8:59:01 PM Ordering Physician: Yunior Bettencourt Final Report: INDICATION: Pain. Cramping TECHNIQUE: CT abdomen and pelvis without contrast. COMPARISON: None available FINDINGS: Lower chest: Apparent mild emphysematous changes. A subcentimeter anterior right cardiophrenic lymph node. Liver: A subcentimeter posterior right hepatic low-density lesion on image 34 and apparent very subtle subcentimeter low-density lesions in the medial segment of the left hepatic lobe and caudate lobe on image 28, not well evaluated. Spleen: Unremarkable. Pancreas: A punctate calcification in the proximal pancreatic body could be postinflammatory. Gallbladder and bile ducts: Unremarkable. Adrenal glands: Unremarkable. Kidneys: No hydronephrosis or discrete, measurable urolithiasis. A subcentimeter left renal low-density lesion, too small to characterize. GI tract: Unremarkable. Appendix is normal. Vascular structures: Atherosclerotic changes. Lymph nodes: No abnormally enlarged lymph nodes. Miscellaneous: A large heterogeneous abdominal and pelvic mass, measuring 15.7 x 12.2 x 15.3 centimeters, likely of right adnexal or mesenteric origin, containing ill-defined areas of soft tissue and low attenuation, as well as a small area of high attenuation posteriorly on image 93. No significant free fluid or free air. Pelvic Organs: No gross uterine or bladder abnormality seen. Bones: Right S2 Tarlov cyst. IMPRESSION: A large heterogeneous abdominal and pelvic mass consistent with neoplasm, likely of right adnexal or mesenteric origin. Subtle subcentimeter hepatic low-density lesions are not well evaluated. Recommend followup evaluation to exclude metastatic disease. No evidence of appendicitis, diverticulitis or bowel obstruction. No obstructive uropathy or discrete, measurable urolithiasis. The findings were discussed with Dr. Mojica, by phone, on 03/16/2018 at 9:20 p.m.. Dictated by Gennaro Borges MD @ 03/16/2018 9:22:47 PM Please note that all CT scans at this facility use dose modulation, iterative reconstruction, and/or weight-based dosing when appropriate to reduce radiation dose to as low as reasonably achievable. Dictated by: Gennaro Borges MD @ 03/16/2018 21:22:54 (Electronic Signature) Report Signed by Proxy. [facility]
== END 2018-03-16 21:36 | disposition home or self-care (01) ==
LOC: MW.ED 18:05
DX: R19.03 Right lower quadrant abdominal swelling, mass and lump (principal); Z87.891 Personal history of nicotine dependence; J45.909 Unspecified asthma, uncomplicated; K21.9 Gastro-esophageal reflux disease without esophagitis; Z88.5 Allergy status to narcotic agent
CPT/HCPCS: 36415; 74176; 80053; 80305; 81001; 85025; 87086; 96360; 96372; 99284; J1885; J7040

== ENCOUNTER 2018-03-20 13:07 | Emergency (ER) | payer MEDICAID ==
[2018-03-20] MEDS ORDERED: Sodium Chloride 0.9% 10 ML Syringe FLUSH PRN (13:28)
[2018-03-20] MEDS ORDERED: Sodium Chloride 0.9% 2.5 ML Syringe FLUSH PRN (13:28)
[2018-03-20] MEDS ORDERED: Sodium Chloride 0.9% 1,000 ML IV ONE (13:28)
[2018-03-20] MEDS ORDERED: Ketorolac 30 MG/ML SDV IVPUSH ONE (13:37)
[2018-03-20] MEDS ORDERED: Ondansetron 4 MG/2 ML SDV IVPUSH ONE (13:38)
--- NOTE | 2018-03-20 14:17 | EDM.PDOC ---
ED HPI GENERAL MEDICAL PROBLEM - General Chief Complaint: Abdominal Pain Stated Complaint: PAIN IN LOWER BELLY Time Seen by Provider: 03/20/18 13:10 Source of Information: Reports: Patient - History of Present Illness INITIAL COMMENTS - FREE TEXT/NARRATIVE: HISTORY AND PHYSICAL: History of present illness: [Ofelia is a 62-year-old female here for right lower abdominal pain. Patient was admitted earlier this month for abdominal pain and pelvic mass. She is schedule for surgery with Dr. Espinosa on 04/01/18. Pain is sharp and cramping. Patient reports she is feeling nauseous and vomited once this morning due to the pain. She denies any vaginal bleeding or discharge , dysuria, hematuria, diarrhea, fevers, chills. She was seen 4 days ago for similar symptoms. CT scan showed large pelvic mass thought to be neoplasm but evaluation by Dr. Espinosa and CA-125 negative, determined to be benign. Patient was given toradol and prescription for bentyl. 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 History of methamphetamine use. Patient is allergic to codeine ] Review of systems: As per history of present illness and below otherwise all systems reviewed and negative. Past medical history: As per history of present illness and as reviewed below otherwise noncontributory. Surgical history: As per history of present illness and as reviewed below otherwise noncontributory. Social history: No reported history of drug or alcohol abuse. Family history: As per history of present illness and as reviewed below otherwise noncontributory. Physical exam: HEENT: Atraumatic, normocephalic, pupils reactive, negative for conjunctival pallor or scleral icterus, mucous membranes moist, throat clear, neck supple, nontender, trachea midline. Lungs: Clear to auscultation, breath sounds equal bilaterally, chest nontender. Heart: S1S2, regular, negative for clicks, rubs, or JVD. Abdomen: Abdomen is soft, distended. Pain to palpation of RLQ. Pelvis: Stable nontender. Genitourinary: Deferred. Rectal: Deferred. Extremities: Atraumatic, negative for cords or calf pain. Neurovascular unremarkable. Neuro: Awake, alert, oriented. Cranial nerves II through XII unremarkable. Cerebellum unremarkable. Motor and sensory unremarkable throughout. Exam nonfocal. Notes: Diagnostics: [CBC, CMP, UA] Therapeutics: [IV fluids Zofran Toradol ] Impression: [Pelvic mass RLQ abdominal pain] Plan: patient offered script for pain medications, she declines at this time due to lack of insurance/money [#1 take OTC motrin or tylenol as needed #2 follow up with [employer] #3 return to ED as needed as discussed ] Definitive disposition and diagnosis as appropriate pending reevaluation and review of above. Onset: Gradual Duration: Week(s): Treatments BRIM ROUNDER: Reports: NSAIDS Back Pain Score (Numeric/FACES): 8 - Related Data Allergies Allergy/AdvReac Type Severity Reaction Status Date / Time codeine Allergy Airway Verified 03/20/18 13:12 Tightness Home Meds: Home Meds Acetaminophen [Tylenol] 650 mg PO Q4H PRN tablet 03/04/18 [Rx] Albuterol [Ventolin HFA] 1 puff INH ASDIRECTED PRN 03/04/18 [History] Naproxen Na-Diphenhydramin HCl [Aleve Pm Caplet] 1 tab PO QPM 03/16/18 [History] Past Medical History HEENT History: Reports: Cataract Cardiovascular History: Reports: None Respiratory History: Reports: Asthma Gastrointestinal History: Reports: GERD Genitourinary History: Reports: None 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 - Infectious Disease History Infectious Disease History: Reports: None - Past Surgical History Head Surgeries/Procedures: Reports: None HEENT Surgical History: Reports: Cataract Surgery Cardiovascular Surgical History: Reports: None GI Surgical History: Reports: Colonoscopy Female Surgical History: Reports: None Endocrine Surgical History: Reports: None Neurological Surgical History: Reports: None Musculoskeletal Surgical History: Reports: None Dermatological Surgical History: Reports: None Social & Family History - Family History Family Medical History: Noncontributory : Reports: Other (See Below) Other Family History: mother cervical cancer OBGYN: Reports: Other (See Below) Other OBGYN Family History: Mother of cervical cancer. Oncologic: Reports: Cervix - Tobacco Use Smoking Status *Q: Current Every Day Smoker Years of Tobacco use: 48 Packs/Tins Daily: 0.5 - Caffeine Use Caffeine Use: Reports: Coffee - Recreational Drug Use Recreational Drug Use: Yes Drug Use in Last 12 Months: Yes Recreational Drug Type: Reports: Methamphetamine ED ROS GENERAL - Review of Systems Review Of Systems: ROS reveals no pertinent complaints other than HPI. ED EXAM, GI/ABD - Physical Exam Exam: See Below (see dictation) Course - Vital Signs Last Recorded V/S: Last Vital Signs Temp 36.6 C 03/20/18 13:13 Pulse 95 03/20/18 13:13 Resp 22 H 03/20/18 13:13 BP 121/86 03/20/18 13:13 Pulse Ox 95 03/20/18 13:13 - Orders/Labs/Meds Orders: Active Orders 24 hr Category Date Time Status UA W/MICROSCOPIC [URIN] Stat Lab 03/20/18 14:44 Ordered Sodium Chloride 0.9% [Saline Flush] Med 03/20/18 13:28 Active 10 ml FLUSH ASDIRECTED PRN Sodium Chloride 0.9% [Saline Flush] Med 03/20/18 13:28 Active 2.5 ml FLUSH ASDIRECTED PRN Saline Lock Insert [OM.PC] Stat Oth 03/20/18 13:28 Ordered Medication Orders Sodium Chloride (Saline Flush) 10 ml FLUSH ASDIRECTED PRN PRN Reason: Keep Vein Open Last Admin: 03/20/18 13:40 Dose: 10 ml Sodium Chloride (Saline Flush) 2.5 ml FLUSH ASDIRECTED PRN PRN Reason: Keep Vein Open Last Admin: 03/20/18 13:40 Dose: 2.5 ml Labs: Laboratory Tests 03/20/18 03/20/18 03/20/18 Range/Units 13:34 13:34 14:44 WBC 11.46 H (4.0-11.0) K/uL RBC 4.72 (4.30-5.90) M/uL Hgb 14.0 (12.0-16.0) g/dL Hct 41.8 (36.0-46.0) % MCV 88.6 (80.0-98.0) fL MCH 29.7 (27.0-32.0) pg MCHC 33.5 (31.0-37.0) g/dL RDW Std Deviation 42.8 (28.0-62.0) fl RDW Coeff of Clarence 13 (11.0-15.0) % Plt Count 371 (150-400) K/uL MPV 9.40 (7.40-12.00) fL Neut % (Auto) 53.8 (48.0-80.0) % Lymph % (Auto) 30.0 (16.0-40.0) % [place] % (Auto) 9.9 (0.0-15.0) % Eos % (Auto) 5.1 (0.0-7.0) % Baso % (Auto) 1.2 (0.0-1.5) % Neut # (Auto) 6.2 H (1.4-5.7) K/uL Lymph # (Auto) 3.4 H (0.6-2.4) K/uL [place] # (Auto) 1.1 H (0.0-0.8) K/uL Eos # (Auto) 0.6 (0.0-0.7) K/uL Baso # (Auto) 0.1 (0.0-0.1) K/uL Nucleated RBC % 0.0 /100WBC Nucleated RBCs # 0 K/uL Sodium 142 (136-145) mmol/L Potassium 4.4 (3.5-5.1) mmol/L Chloride 106 (98-107) mmol/L Carbon Dioxide 29.1 (21.0-32.0) mmol/L BUN 22 H (7.0-18.0) mg/dL Creatinine 1.1 H (0.6-1.0) mg/dL Est Cr Clr Drug Dosing 46.38 mL/min Estimated GFR (MDRD) 50.5 ml/min Glucose 94 (74-106) mg/dL Calcium 9.2 (8.5-10.1) mg/dL Total Bilirubin 0.1 L (0.2-1.0) mg/dL AST 12 L (15-37) IU/L ALT 16 (14-63) IU/L Alkaline Phosphatase 111 (46-116) U/L Total Protein 6.9 (6.4-8.2) g/dL Albumin 2.9 L (3.4-5.0) g/dL Globulin 4.0 H (2.0-3.5) g/dL Albumin/Globulin Ratio 0.7 L (1.3-2.8) Urine Color YELLOW Urine Appearance CLEAR Urine pH 6.5 (5.0-8.0) Ur Specific [place] 1.015 (1.001-1.035) Urine Protein NEGATIVE (NEGATIVE) mg/dL Urine Glucose (UA) NEGATIVE (NEGATIVE) mg/dL Urine Ketones NEGATIVE (NEGATIVE) mg/dL Urine Occult Blood NEGATIVE (NEGATIVE) Urine Nitrite NEGATIVE (NEGATIVE) Urine Bilirubin NEGATIVE (NEGATIVE) Urine Urobilinogen 0.2 (<2.0) EU/dL Ur Leukocyte Esterase NEGATIVE (NEGATIVE) Urine RBC 0-3 (0-2/HPF) Urine WBC 0-2 (0-5/HPF) Ur Epithelial Cells MODERATE (NONE-FEW) Urine Bacteria FEW (NEGATIVE) Meds: Medications Generic Name Dose Route Start Last Admin Trade Name Francisco PRN Reason Stop Dose Admin Sodium Chloride 10 ml 03/20/18 13:28 03/20/18 13:40 Saline Flush FLUSH 10 ml ASDIRECTED PRN Administration Keep Vein Open Sodium Chloride 2.5 ml 03/20/18 13:28 03/20/18 13:40 Saline Flush FLUSH 2.5 ml ASDIRECTED PRN Administration Keep Vein Open Discontinued Medications Generic Name Dose Route Start Last Admin Trade Name Francisco PRN Reason Stop Dose Admin Sodium Chloride 1,000 mls @ 999 mls/hr 03/20/18 13:28 03/20/18 13:39 Normal Saline IV 03/20/18 14:28 999 mls/hr STAT ONE Administration Ketorolac Tromethamine 30 mg 03/20/18 13:37 03/20/18 13:40 Toradol IVPUSH 03/20/18 13:38 30 mg ONETIME ONE Administration Ondansetron HCl 4 mg 03/20/18 13:38 03/20/18 13:40 Zofran IVPUSH 03/20/18 13:39 4 mg ONETIME ONE Administration Departure - Departure Time of Disposition: 15:15 Disposition: Home, Self-Care 01 Condition: Good Clinical Impression: Pelvic mass - Discharge Information Forms: ED Department Discharge Additional Instructions: The following information is given to patients seen in the emergency department who are being discharged to home. This information is to outline your options for follow-up care. We provide all patients seen in our emergency department with a follow-up referral. The need for follow-up, as well as the timing and circumstances, are variable depending upon the specifics of your emergency department visit. If you don't have a primary care physician on staff, we will provide you with a referral. We always advise you to contact your personal physician following an emergency department visit to inform them of the circumstance of the visit and for follow-up with them and/or the need for any referrals to a consulting specialist. The emergency department will also refer you to a specialist when appropriate. This referral assures that you have the opportunity for follow-up care with a specialist. All of these measure are taken in an effort to provide you with optimal care, which includes your follow-up. Under all circumstances we always encourage you to contact your private physician who remains a resource for coordinating your care. When calling for follow-up care, please make the office aware that this follow-up is from your recent emergency room visit. If for any reason you are refused follow-up, please contact the [facility] Emergency Department at and asked to speak to the emergency department charge nurse [facility] [employer] [address] [place], [place] [id number] #1 take OTC motrin or tylenol as needed #2 follow up with [employer] #3 return to ED as needed as discussed - My Orders Last 24 Hours: My Active Orders 03/20/18 13:28 Sodium Chloride 0.9% [Saline Flush] 10 ml FLUSH ASDIRECTED PRN Sodium Chloride 0.9% [Saline Flush] 2.5 ml FLUSH ASDIRECTED PRN Saline Lock Insert [OM.PC] Stat 03/20/18 14:44 UA W/MICROSCOPIC [URIN] Stat - Assessment/Plan Last 24 Hours: My Active Orders 03/20/18 13:28 Sodium Chloride 0.9% [Saline Flush] 10 ml FLUSH ASDIRECTED PRN Sodium Chloride 0.9% [Saline Flush] 2.5 ml FLUSH ASDIRECTED PRN Saline Lock Insert [OM.PC] Stat 03/20/18 14:44 UA W/MICROSCOPIC [URIN] Stat
== END 2018-03-20 15:21 | disposition home or self-care (01) ==
LOC: MW.ED 13:07
DX: R19.00 Intra-abdominal and pelvic swelling, mass and lump, unspecified site (principal); E66.9 Obesity, unspecified; F17.210 Nicotine dependence, cigarettes, uncomplicated; Z88.5 Allergy status to narcotic agent
CPT/HCPCS: 36415; 80053; 81001; 85025; 96361; 96374; 96375; 99284; J1885; J2405; J7040

== ENCOUNTER 2018-04-01 08:50 | Day surgery (SDC) | payer MEDICAID ==
[2018-03-30 10:48] LABS: CHLORIDE,CL 104 mmol/L (98-107); SODIUM,NA 139 mmol/L (136-145)
[~2018-04-01 08:50] MED LIST: Acetaminophen 1,000 MG in Premix Bag 1 BAG IV SCH; Lactated Ringers 1,000 ML IV SCH; Scopolamine 1.5 MG Transdermal Patch TRDERM PRN; Sodium Chloride 0.9% 10 ML Syringe FLUSH PRN; Sodium Chloride 0.9% 2.5 ML Syringe FLUSH PRN; ceFAZolin 2 GM in Premix Bag 1 BAG IV ONE
[2018-04-01] MEDS ORDERED: Neostigmine Methylsulfate 1 MG/ML 5 ML Syringe ONE (09:42)
[2018-04-01] MEDS ORDERED: Ondansetron 4 MG/2 ML SDV ONE (09:42)
[2018-04-01] MEDS ORDERED: Glycopyrrolate 0.2 MG/ML SDV ONE (09:42)
[2018-04-01] MEDS ORDERED: Lidocaine 2% 5 ML SDV ONE (09:42)
[2018-04-01] MEDS ORDERED: Rocuronium 10 MG/ML 10 ML Syringe ONE (09:42)
[2018-04-01] MEDS ORDERED: fentaNYL 250 MCG/5 ML SDV ONE (09:43)
[2018-04-01] MEDS ORDERED: Midazolam 1 MG/ML 2 ML SDV ONE (09:43)
[2018-04-01] MEDS ORDERED: Propofol 200 MG/20 ML SDV ONE (09:43)
--- NOTE | 2018-04-01 09:53 | PCM.PREANE ---
Preanesthetic Assessment - Anesthesia/Transfusion/Family Hx Anesthesia History: Prior Anesthesia Without Reaction Family History of Anesthesia Reaction: No Transfusion History: No Prior Transfusion(s) Intubation History: Unknown - Review of Systems General: No Symptoms Pulmonary: Wheezing, Cough, Other (Diagnosed asthma + smoking - uses inhaler 4x' s/day - DuoNeb ordered preop) Cardiovascular: No Symptoms Gastrointestinal: Other (GERD - has to sleep with head elevated - will order Pepcid preop) Neurological: No Symptoms Other: Reports: None - Physical Assessment NPO Status Date: 04/01/18 NPO Status Time: 00:00 O2 Sat by Pulse Oximetry: 96 Respiratory Rate: 16 Vital Signs: Last Vital Signs Temp 98.4 F 04/01/18 09:37 Pulse 76 04/01/18 09:37 Resp 16 04/01/18 09:37 BP 116/75 04/01/18 09:37 Pulse Ox 96 04/01/18 09:37 Height: 5 ft 4 in Weight: 181 lb ASA Class: 3 Mental Status: Alert & Oriented x3 Airway Class: Mallampati = 2 Dentition: Reports: Dentures (Not currently in - endentulous) Thyro-Mental Finger Breadths: 3 Mouth Opening Finger Breadths: 3 ROM/Head Extension: Full Lungs: Decreased Breath Sounds, Wheezing (slight expiratory wheezing - worse on R side - DuoNeb ordered preop) Cardiovascular: Regular Rate, Regular Rhythm - Lab Values: Laboratory Last Values WBC 12.71 K/uL (4.0-11.0) H 03/30/18 10:13 RBC 4.52 M/uL (4.30-5.90) 03/30/18 10:13 Hgb 13.3 g/dL (12.0-16.0) 03/30/18 10:13 Hct 39.9 % (36.0-46.0) 03/30/18 10:13 MCV 88.3 fL (80.0-98.0) 03/30/18 10:13 MCH 29.4 pg (27.0-32.0) 03/30/18 10:13 MCHC 33.3 g/dL (31.0-37.0) 03/30/18 10:13 RDW Std Deviation 42.9 fl (28.0-62.0) 03/30/18 10:13 RDW Coeff of Clarence 13 % (11.0-15.0) 03/30/18 10:13 Plt Count 363 K/uL (150-400) 03/30/18 10:13 MPV 9.10 fL (7.40-12.00) 03/30/18 10:13 Nucleated RBC % 0.0 /100WBC 03/30/18 10:13 Nucleated RBCs # 0 K/uL 03/30/18 10:13 Sodium 139 mmol/L (136-145) 03/30/18 10:13 Potassium 4.2 mmol/L (3.5-5.1) 03/30/18 10:13 Chloride 104 mmol/L (98-107) 03/30/18 10:13 Carbon Dioxide 30.5 mmol/L (21.0-32.0) 03/30/18 10:13 BUN 21 mg/dL (7.0-18.0) H 03/30/18 10:13 Creatinine 0.8 mg/dL (0.6-1.0) 03/30/18 10:13 Est Cr Clr Drug Dosing 63.77 mL/min 03/30/18 10:13 Estimated GFR (MDRD) > 60.0 ml/min 03/30/18 10:13 Glucose 103 mg/dL (74-106) 03/30/18 10:13 Calcium 9.4 mg/dL (8.5-10.1) 03/30/18 10:13 HCG, Qual NEGATIVE (NEG) 03/30/18 10:13 Blood Type B POSITIVE 03/30/18 10:13 Antibody Screen NEGATIVE 03/30/18 10:13 - Allergies Allergies/Adverse Reactions: Allergies Allergy/AdvReac Type Severity Reaction Status Date / Time No Known Allergies Allergy Verified 03/26/18 08:44 - Blood Blood Available: No Product(s) Available: None - Anesthesia Plan Free Text/Narrative:: GETA Pre-Op Medication Ordered: Antacids, Other (scop patch and IV Ofirmev) - Acknowledgements Anesthesia Type Planned: General Anesthesia Pt an Appropriate Candidate for the Planned Anesthesia: Yes Alternatives and Risks of Anesthesia Discussed w Pt/Guardian: Yes Pt/Guardian Understands and Agrees with Anesthesia Plan: Yes PreAnesthesia Questionnaire HEENT History: Reports: Cataract Other HEENT History: upper and lower dentures Cardiovascular History: Reports: None Respiratory History: Reports: Asthma Gastrointestinal History: Reports: GERD (severe - sleeps with head elevated) Genitourinary History: Reports: None 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 - Infectious Disease History Infectious Disease History: Reports: None - Past Surgical History Head Surgeries/Procedures: Reports: None HEENT Surgical History: Reports: Cataract Surgery Cardiovascular Surgical History: Reports: None GI Surgical History: Reports: Colonoscopy Female Surgical History: Reports: None Endocrine Surgical History: Reports: None Neurological Surgical History: Reports: None Musculoskeletal Surgical History: Reports: None Dermatological Surgical History: Reports: None - SUBSTANCE USE Smoking Status *Q: Former Smoker (quit 2 weeks ago - on a nicotine patch) Tobacco Use Within Last Twelve Months: Cigarettes Recreational Drug Use History: Yes Recreational Drug Type: Reports: Methamphetamine (last use was early February 2018) Recreational Drug Last Use: 02/27/18 - HOME MEDS Home Medications: Home Meds Albuterol [Ventolin HFA] 2 puff INH ASDIRECTED PRN 03/26/18 [History] Docusate Sodium [Dulcolax Stool Softener] 100 mg PO PRN 04/01/18 [History] oxyCODONE HCl/Acetaminophen [Percocet 7.5-325 mg Tablet] 1 each PO Q4HR PRN 02/12 [History] - CURRENT (IN HOUSE) MEDS Current Meds: Current Medications Albuterol/Ipratropium (Duoneb 3.0-0.5 Mg/3 Ml) 3 ml NEB .ONETIME EDDY Lactated Ringer's (Ringers, Lactated) 1,000 mls @ 125 mls/hr IV ASDIRECTED EDDY Last Admin: 04/01/18 09:32 Dose: 125 mls/hr Acetaminophen 1,000 mg/ Premix 100 mls @ 400 mls/hr IV .ONETIME EDDY Last Admin: 04/01/18 09:33 Dose: 400 mls/hr Scopolamine (Transderm-Scop) 1.5 mg TRDERM .ONCE PRN PRN Reason: Post Op Nausea Last Admin: 04/01/18 09:32 Dose: 1.5 mg Sodium Chloride (Saline Flush) 10 ml FLUSH ASDIRECTED PRN PRN Reason: Keep Vein Open Sodium Chloride (Saline Flush) 2.5 ml FLUSH ASDIRECTED PRN PRN Reason: Keep Vein Open Discontinued Medications Fentanyl (Sublimaze) Confirm Administered Dose 250 mcg .ROUTE .STK-MED ONE Stop: 04/01/18 09:44 Glycopyrrolate (Robinul) Confirm Administered Dose 0.4 mg .ROUTE .STK-MED ONE Stop: 04/01/18 09:43 Cefazolin Sodium/Dextrose 2 gm (/ Premix) 50 mls @ 100 mls/hr IV ONETIME ONE Stop: 03/30/18 10:14 Lidocaine (Xylocaine-Mpf 2%) Confirm Administered Dose 5 ml .ROUTE .STK-MED ONE Stop: 04/01/18 09:43 Midazolam HCl (Versed 1 Mg/Ml) Confirm Administered Dose 2 mg .ROUTE .STK-MED ONE Stop: 04/01/18 09:44 Neostigmine Methylsulfate (Neostigmine) Confirm Administered Dose 5 mg .ROUTE .STK-MED ONE Stop: 04/01/18 09:43 Ondansetron HCl (Zofran) Confirm Administered Dose 4 mg .ROUTE .STK-MED ONE Stop: 04/01/18 09:43 Propofol (Diprivan 20 Ml) Confirm Administered Dose 200 mg .ROUTE .STK-MED ONE Stop: 04/01/18 09:44 Rocuronium [place] (Zemuron) Confirm Administered Dose 100 mg .ROUTE .STK-MED ONE Stop: 04/01/18 09:43
[2018-04-01] MEDS ORDERED: fentaNYL 100 MCG/2 ML SDV IVPUSH PRN (09:56)
[2018-04-01] MEDS ORDERED: Famotidine 20 MG/2 ML SDV IVPUSH SCH (10:30)
[2018-04-01] MEDS ORDERED: Albuterol/Ipratropium 3.0-0.5 MG/3 ML Neb Soln NEB SCH (10:45)
== END 2018-04-01 11:15 | disposition home or self-care (01) ==
LOC: MW.SDS 08:50 → EDSTATUS 10:30 → MW.SDS 11:15
PROVIDERS: ATTEND Obstetrics & Gynecology
DX: R19.00 Intra-abdominal and pelvic swelling, mass and lump, unspecified site (principal); Z53.21 Procedure and treatment not carried out due to patient leaving prior to being seen by health care provider; J45.909 Unspecified asthma, uncomplicated; E66.9 Obesity, unspecified; Z68.32 Body mass index [BMI] 32.0-32.9, adult; K21.9 Gastro-esophageal reflux disease without esophagitis; Z87.891 Personal history of nicotine dependence; Z80.49 Family history of malignant neoplasm of other genital organs
CPT/HCPCS: 36415; 80048; 84703; 85027; 86850; 86900; 86901; A9270; J7120; J2250; J2405; J2704; J3010

== ENCOUNTER 2018-04-06 17:42 | Emergency (ER) | payer MEDICAID ==
[2018-04-06] MEDS ORDERED: Albuterol/Ipratropium 3.0-0.5 MG/3 ML Neb Soln NEB ONE ×2 (18:19→19:26)
[2018-04-06] MEDS ORDERED: methylPREDNISolone Sodium Succinate 125 MG/2 ML SDV IM ONE (18:34)
--- NOTE | 2018-04-06 18:51 | EDM.PDOC ---
ED HPI GENERAL MEDICAL PROBLEM - General Chief Complaint: Respiratory Problem Stated Complaint: ASTHMA/SHORTNESS OF BREATH Time Seen by Provider: 04/06/18 19:46 Source of Information: Reports: Patient History Limitations: Reports: No Limitations - History of Present Illness INITIAL COMMENTS - FREE TEXT/NARRATIVE: HISTORY AND PHYSICAL: History of present illness: [Patient is a 62 year old female who presents to the ED today for shortness of breath, chest tightness, and coughing that has been going on for a few weeks but today has progressively worsened. She believes these symptoms are related to her asthma and she states she has Albuterol and is unsure of her second inhaler but has been taking both of these several times throughout the day without any relief of symptoms. She states that she has not had an asthma exacerbation like this in a few months which is also the last time she took an oral steroid. She states she also has been having fever and chills off and on the past 3 days but has not checked a temperature at home. She states she is currently not a smoker and hasn't had a cigarette for a few weeks but she used to smoke heavily for many years. She denies lower extremity edema, abdominal pain, sore throat, nausea, vomiting, diarrhea, diaphoresis. Patient complains of pain in her right abdomen with coughing. She states she has an abdominal mass that needs surgical removal, she has a follow up with OB/ [employer] on 04/14. She is requesting something for pain. ] Review of systems: As per history of present illness and below otherwise all systems reviewed and negative. Past medical history: As per history of present illness and as reviewed below otherwise noncontributory. Surgical history: As per history of present illness and as reviewed below otherwise noncontributory. Social history: No reported history of drug or alcohol abuse. Family history: As per history of present illness and as reviewed below otherwise noncontributory. Physical exam: General: Patient is sitting and breathing comfortably on the exam table, in no acute distress. HEENT: Atraumatic, normocephalic, pupils reactive, negative for conjunctival pallor or scleral icterus, mucous membranes moist, throat clear, neck supple, nontender, trachea midline. Lungs: Inspiratory and expiratory wheezing throughout all lung mora, fine crackles of the left lower lung base, breath sounds diminished but heard equal bilaterally, chest nontender. Heart: S1S2, regular, negative for clicks, rubs. Extremities: Atraumatic, negative for cords or calf pain. Neurovascular unremarkable. Neuro: Awake, alert, oriented. Cranial nerves II through XII unremarkable. Cerebellum unremarkable. Motor and sensory unremarkable throughout. Exam nonfocal. Notes: Breath sounds improved after duoneb, patient maintaining O2 > 94% Diagnostics: [CBC, CMP, CXR] Therapeutics: [DuoNeb x 2, Solumedrol 125mg IV] Azithromycin Medrol dosepak Impression: [COPD exacerbation] Plan: [#1 Take antibiotic and medrol dosepak as directed, continue rescue inhaler every 4-6 hours as needed #2 You may take tramadol as needed for severe pain #3 Follow up with primary care provider #4 Return to ED as needed as discussed ] Definitive disposition and diagnosis as appropriate pending reevaluation and review of above. Onset: Today Right Rib pain Pain Score (Numeric/FACES): 8 - Related Data Allergies Allergy/AdvReac Type Severity Reaction Status Date / Time No Known Allergies Allergy Verified 04/06/18 18:01 Home Meds: Home Meds Albuterol [Ventolin HFA] 2 puff INH ASDIRECTED PRN 03/26/18 [History] Docusate Sodium [Dulcolax Stool Softener] 100 mg PO DAILY PRN 04/01/18 [History] oxyCODONE HCl/Acetaminophen [Percocet 7.5-325 mg Tablet] 1 each PO Q4HR PRN 02/12 [History] traMADol [Ultram] 50 mg PO TID #10 tablet 04/06/18 [Rx] Past Medical History HEENT History: Reports: Cataract Other HEENT History: upper and lower dentures Cardiovascular History: Reports: None Respiratory History: Reports: Asthma Gastrointestinal History: Reports: GERD Genitourinary History: Reports: None [employer] History: Reports: , Other (See Below) Other [employer] History: pelvic mass Musculoskeletal History: Reports: None Neurological History: Reports: Migraines Psychiatric History: Reports: None Endocrine/Metabolic History: Reports: Obesity/BMI 30+ Hematologic History: Reports: None Immunologic History: Reports: None Oncologic (Cancer) History: Reports: None Other Oncologic History: skin cancer (unsure what kind) Dermatologic History: Reports: Other (See Below) Other Dermatologic History: Mass to right side of back removed X 2 years ago. - Infectious Disease History Infectious Disease History: Reports: None - Past Surgical History Head Surgeries/Procedures: Reports: None HEENT Surgical History: Reports: Cataract Surgery Cardiovascular Surgical History: Reports: None GI Surgical History: Reports: Colonoscopy Female Surgical History: Reports: None, Tubal Ligation Endocrine Surgical History: Reports: None Neurological Surgical History: Reports: None Musculoskeletal Surgical History: Reports: None Dermatological Surgical History: Reports: None Social & Family History - Family History Family Medical History: Noncontributory : Reports: Other (See Below) Other Family History: mother cervical cancer OBGYN: Reports: Other (See Below) Other OBGYN Family History: Mother of cervical cancer. Oncologic: Reports: Cervix - Tobacco Use Smoking Status *Q: Current Every Day Smoker Years of Tobacco use: 48 Packs/Tins Daily: 1.5 Used Tobacco, but Quit: Yes Month/Year Tobacco Last Used: 03/27/2018 - Caffeine Use Caffeine Use: Reports: Coffee - Recreational Drug Use Recreational Drug Use: Yes Drug Use in Last 12 Months: Yes Recreational Drug Type: Reports: Methamphetamine ED ROS GENERAL - Review of Systems Review Of Systems: ROS reveals no pertinent complaints other than HPI. ED EXAM, GENERAL - Physical Exam Exam: See Below (see dictation) Course - Vital Signs Last Recorded V/S: Last Vital Signs Temp 36.8 C 04/06/18 19:09 Pulse 91 04/06/18 19:09 Resp 20 04/06/18 19:09 BP 136/86 04/06/18 19:09 Pulse Ox 96 04/06/18 19:09 - Orders/Labs/Meds Orders: Active Orders 24 hr Category Date Time Status RT Aerosol Therapy [RC] ASDIRECTED Care 04/06/18 18:19 Active RT Aerosol Therapy [RC] ASDIRECTED Care 04/06/18 19:26 Active Chest 2V [CR] Stat Exams 04/06/18 18:35 Taken traMADol [Ultram] Med 04/06/18 20:18 Active 50 mg PO Q8H PRN Medication Orders Tramadol HCl (Ultram) 50 mg PO Q8H PRN PRN Reason: Abdominal Pain Labs: Laboratory Tests 04/06/18 04/06/18 Range/Units 18:00 18:00 WBC 11.53 H (4.0-11.0) K/uL RBC 4.80 (4.30-5.90) M/uL Hgb 13.9 (12.0-16.0) g/dL Hct 41.9 (36.0-46.0) % MCV 87.3 (80.0-98.0) fL MCH 29.0 (27.0-32.0) pg MCHC 33.2 (31.0-37.0) g/dL RDW Std Deviation 42.7 (28.0-62.0) fl RDW Coeff of Clarence 13 (11.0-15.0) % Plt Count 386 (150-400) K/uL MPV 9.20 (7.40-12.00) fL Neut % (Auto) 62.8 (48.0-80.0) % Lymph % (Auto) 21.4 (16.0-40.0) % [place] % (Auto) 10.5 (0.0-15.0) % Eos % (Auto) 4.3 (0.0-7.0) % Baso % (Auto) 1.0 (0.0-1.5) % Neut # (Auto) 7.2 H (1.4-5.7) K/uL Lymph # (Auto) 2.5 H (0.6-2.4) K/uL [place] # (Auto) 1.2 H (0.0-0.8) K/uL Eos # (Auto) 0.5 (0.0-0.7) K/uL Baso # (Auto) 0.1 (0.0-0.1) K/uL Nucleated RBC % 0.0 /100WBC Nucleated RBCs # 0 K/uL Sodium 138 (136-145) mmol/L Potassium 4.1 (3.5-5.1) mmol/L Chloride 103 (98-107) mmol/L Carbon Dioxide 26.6 (21.0-32.0) mmol/L BUN 14 (7.0-18.0) mg/dL Creatinine 1.0 (0.6-1.0) mg/dL Est Cr Clr Drug Dosing 51.02 mL/min Estimated GFR (MDRD) 56.4 ml/min Glucose 119 H (74-106) mg/dL Calcium 9.2 (8.5-10.1) mg/dL Total Bilirubin 0.2 (0.2-1.0) mg/dL AST 19 (15-37) IU/L ALT 23 (14-63) IU/L Alkaline Phosphatase 104 (46-116) U/L Total Protein 7.3 (6.4-8.2) g/dL Albumin 3.1 L (3.4-5.0) g/dL Globulin 4.2 H (2.0-3.5) g/dL Albumin/Globulin Ratio 0.7 L (1.3-2.8) Meds: Medications Generic Name Dose Route Start Last Admin Trade Name Freq PRN Reason Stop Dose Admin Tramadol HCl 50 mg 04/06/18 20:18 Ultram PO Q8H PRN Abdominal Pain Discontinued Medications Generic Name Dose Route Start Last Admin Trade Name Freq PRN Reason Stop Dose Admin Albuterol/Ipratropium 3 ml 04/06/18 18:19 04/06/18 18:28 Duoneb 3.0-0.5 Mg/3 Ml NEB 04/06/18 18:20 3 ml ONETIME ONE Administration Albuterol/Ipratropium 3 ml 04/06/18 19:26 04/06/18 19:47 Duoneb 3.0-0.5 Mg/3 Ml NEB 04/06/18 19:27 3 ml ONETIME ONE Administration Methylprednisolone Sodium Succinate 125 mg 04/06/18 18:34 04/06/18 18:57 Solu-Medrol IM 04/06/18 18:35 125 mg ONETIME ONE Administration Departure - Departure Time of Disposition: 20:20 Disposition: Home, Self-Care 01 Condition: Good Clinical Impression: COPD exacerbation - Discharge Information Prescriptions: traMADol [Ultram] 50 mg PO TID #10 tablet Referrals: PCP,None [Primary Care Provider] - Forms: ED Department Discharge Additional Instructions: The following information is given to patients seen in the emergency department who are being discharged to home. This information is to outline your options for follow-up care. We provide all patients seen in our emergency department with a follow-up referral. The need for follow-up, as well as the timing and circumstances, are variable depending upon the specifics of your emergency department visit. If you don't have a primary care physician on staff, we will provide you with a referral. We always advise you to contact your personal physician following an emergency department visit to inform them of the circumstance of the visit and for follow-up with them and/or the need for any referrals to a consulting specialist. The emergency department will also refer you to a specialist when appropriate. This referral assures that you have the opportunity for follow-up care with a specialist. All of these measure are taken in an effort to provide you with optimal care, which includes your follow-up. Under all circumstances we always encourage you to contact your private physician who remains a resource for coordinating your care. When calling for follow-up care, please make the office aware that this follow-up is from your recent emergency room visit. If for any reason you are refused follow-up, please contact the [facility] Emergency Department at and asked to speak to the emergency department charge nurse. [facility] [address] [place] [address] [place] [address] #1 Take antibiotic and medrol dosepak as directed, continue rescue inhaler every 4-6 hours as needed #2 You may take tramadol as needed for severe pain #3 Follow up with primary care provider #4 Return to ED as needed as discussed - My Orders Last 24 Hours: My Active Orders 04/06/18 18:35 Chest 2V [CR] Stat 04/06/18 19:26 RT Aerosol Therapy [RC] ASDIRECTED 04/06/18 20:18 traMADol [Ultram] 50 mg PO Q8H PRN - Assessment/Plan Last 24 Hours: My Active Orders 04/06/18 18:35 Chest 2V [CR] Stat 04/06/18 19:26 RT Aerosol Therapy [RC] ASDIRECTED 04/06/18 20:18 traMADol [Ultram] 50 mg PO Q8H PRN
[2018-04-06] MEDS ORDERED: traMADol 50 MG Tab PO PRN (20:18)
--- NOTE | 2018-04-07 12:58 | CR ---
EXAM DATE: 04/06/18 PATIENT'S AGE: 62 Patient: ANABELA HALL Facility: [place], [place] Site . Site : [id number] Study: XRay Chest [id number] 7:25:58 PM Ordering Physician: Doctor Garcia Final Report: INDICATION: ASTHMA ATTACK, COUGH TECHNIQUE: Chest 2 views. COMPARISON: None. FINDINGS: Cardiovascular and mediastinum: Heart size and vasculature are normal in caliber and appearance. Mediastinum is within normal limits. Lungs and pleural spaces: Lungs are clear. No sign of infiltrate or mass. No sign of pleural effusion. No pneumothorax. Bones and soft tissues: No significant findings. IMPRESSION: Unremarkable chest. Dictated by: Radames Barr MD @ 04/06/2018 19:40:56 (Electronic Signature) MTDD
== END 2018-04-06 20:40 | disposition home or self-care (01) ==
LOC: MW.ED 17:42
DX: J44.1 Chronic obstructive pulmonary disease with (acute) exacerbation (principal); F17.210 Nicotine dependence, cigarettes, uncomplicated
CPT/HCPCS: 71046; 80053; 85025; 94640; 96374; 99285; A9270; J2930; 99283

== ENCOUNTER 2018-04-11 23:06 | Emergency (ER) | payer MEDICAID ==
[2018-04-11] MEDS: Sodium Chloride 0.9% 2.5 ML Syringe FLUSH PRN ×2 (23:16→23:17)
[2018-04-11] MEDS ORDERED: Sodium Chloride 0.9% 10 ML Syringe FLUSH PRN (23:53)
[2018-04-11] MEDS ORDERED: Sodium Chloride 0.9% 1,000 ML IV ONE (23:53)
[2018-04-11] MEDS ORDERED: fentaNYL 100 MCG/2 ML SDV IVPUSH ONE (23:53)
--- NOTE | 2018-04-11 23:54 | EDM.PDOC ---
ED HPI GENERAL MEDICAL PROBLEM - General Chief Complaint: Abdominal Pain Stated Complaint: PLANK PAIN Time Seen by Provider: 04/11/18 23:29 - History of Present Illness INITIAL COMMENTS - FREE TEXT/NARRATIVE: HISTORY AND PHYSICAL: History of present illness: The patient is a 62-year-old female who presents via EMS with complaints of left -sided abdominal and left flank pain. The patient has a history of COPD/asthma and used to smoke heavily and has since quit and uses inhalers and nebulizers for same and has a chronic cough and presents with complaints of this left sided left abdominal and flank pain that has been ongoing for the last 1-2 days. 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 The patient was supposed to have this mass removed here at our hospital on April 01 and that surgery was canceled due to the patient having a cough and the patient has since rescheduled a consultation at [facility] in [place] on April 14. The patient says she usually has right-sided abdominal and pelvic pain for which she uses tramadol but she ran out of her tramadol 2 days ago. She says the left sided pain is new and started since not being able to take any pain meds. She says she has not had any urinary complaints but her urine looks somewhat dark but there is no blood. She has no history of kidney stones and is moving her bowels. She's had no fevers chills chest pain or new shortness of breath and has not been vomiting. She still has her chronic right-sided abdominal pain but the left side is new and different for her. She says she falls a lot and she has some visible bruising throughout her body of various ages to indicate that. His recall any falls or injury to the left side. Review of systems: As per history of present illness and below otherwise all systems reviewed and negative. Past medical history: As per history of present illness and as reviewed below otherwise noncontributory. Surgical history: As per history of present illness and as reviewed below otherwise noncontributory. Social history: No reported history of drug or alcohol abuse. Family history: As per history of present illness and as reviewed below otherwise noncontributory. Physical exam: General: Well-developed well-nourished female who looks much older than stated age and has a harsh dry cough on my evaluation. Vital signs are noted by me. She is speaking without breathlessness HEENT: Atraumatic, normocephalic, pupils reactive, negative for conjunctival pallor or scleral icterus, mucous membranes moist, throat clear, neck supple, nontender, trachea midline. Lungs: Clear to auscultation with some scattered expiratory wheezing but no worker breathing or stridor, breath sounds equal bilaterally, chest nontender. Heart: S1S2, regular rate and rhythm no overt murmurs Abdomen: Soft, distended abdomen with firmness in the right lower right mid ( but no rebound or guarding. Bowel sounds are hypoactive. There is discrete tenderness with any palpation of the left lower and left mid abdomen extending into the left flank. There is no discrete CVA tenderness. There is a resolving ecchymosis seen at the abdominal wall in the left mid and lower side area which does not look acute. There is no chest wall tenderness on the left side and no defects or deformities in the ribs posteriorly or anteriorly. Negative for costovertebral tenderness. Pelvis: Stable nontender. Genitourinary: Deferred. Rectal: Deferred. Extremities: Atraumatic, negative for cords or calf pain. Neurovascular unremarkable. Neuro: Awake, alert, oriented. Cranial nerves II through XII unremarkable. Cerebellum unremarkable. Motor and sensory unremarkable throughout. Exam nonfocal. Diagnostics: CBC CMP amylase lipase UA urine culture if indicated CT scan of the abdomen and pelvis Therapeutics: Patient received fentanyl 50 g per EMS prior to arrival an IV was placed by them IV fluids fentanyl Patient was offered a nebulizer treatment for her scattered wheezing and declines. 0219: Patient was asleep when he had to the room and we discussed all testing results and have pushed the CT scan images to [place] for her appointment on Thursday. She is aware that the mass is growing and there is no other etiology or new etiology of her pain. I will give her tramadol here and a prescription for home and have advised her on reasons to return to the ED and to monitor her symptoms. Impression: Left abdominal pain/flank pain with history of large abdominal pelvic mass on the right; increased interval growth of the mass stable. Definitive disposition and diagnosis as appropriate pending reevaluation and review of above. Left Abdominal Pain Score (Numeric/FACES): 8 - Related Data Allergies Allergy/AdvReac Type Severity Reaction Status Date / Time No Known Allergies Allergy Verified 04/11/18 23:17 Home Meds: Home Meds Albuterol [Ventolin HFA] 2 puff INH ASDIRECTED PRN 03/26/18 [History] Docusate Sodium [Dulcolax Stool Softener] 100 mg PO DAILY PRN 04/01/18 [History] oxyCODONE HCl/Acetaminophen [Percocet 7.5-325 mg Tablet] 1 each PO Q4HR PRN 02/12 [History] methylPREDNISolone [Medrol] 4 mg PO ASDIRECTED #1 tab.ds.pk 04/06/18 [Rx] Acetaminophen/Diphenhydramine [Tylenol Pm Ex-Strength Caplet] 1 each PO PRN [History] Albuterol/Ipratropium [DuoNeb 3.0-0.5 MG/3 ML] 3 ml INH PRN 04/11/18 [History] Past Medical History HEENT History: Reports: Cataract Other HEENT History: upper and lower dentures Cardiovascular History: Reports: None Respiratory History: Reports: Asthma Gastrointestinal History: Reports: GERD Genitourinary History: Reports: None [employer]MENT SUPERVISOR History: Reports: , Other (See Below) Other [employer]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 - Infectious Disease History Infectious Disease History: Reports: None - Past Surgical History Head Surgeries/Procedures: Reports: None HEENT Surgical History: Reports: Cataract Surgery Cardiovascular Surgical History: Reports: None GI Surgical History: Reports: Colonoscopy Female Surgical History: Reports: None, Tubal Ligation Endocrine Surgical History: Reports: None Neurological Surgical History: Reports: None Musculoskeletal Surgical History: Reports: None Dermatological Surgical History: Reports: None Social & Family History - Family History Family Medical History: Noncontributory : Reports: Other (See Below) Other Family History: mother cervical cancer OBGYN: Reports: Other (See Below) Other OBGYN Family History: Mother of cervical cancer. Oncologic: Reports: Cervix - Tobacco Use Smoking Status *Q: Current Every Day Smoker Years of Tobacco use: 48 Packs/Tins Daily: 0.2 - Caffeine Use Caffeine Use: Reports: Coffee ED ROS GENERAL - Review of Systems Review Of Systems: ROS reveals no pertinent complaints other than HPI. ED EXAM, GENERAL - Physical Exam Exam: See Below (See dictation) Course - Vital Signs Last Recorded V/S: Last Vital Signs Temp 36.4 C 04/12/18 00:14 Pulse 71 04/12/18 01:21 Resp 18 04/12/18 01:21 BP 121/77 04/12/18 01:21 Pulse Ox 94 L 04/12/18 01:21 - Orders/Labs/Meds Orders: Active Orders 24 hr Category Date Time Status Oxygen Therapy, ED [RC] ASDIRECTED Care 04/11/18 23:52 Active Pulse Oximetry [RC] ASDIRECTED Care 04/11/18 23:52 Active Abdomen Pelvis w Cont [CT] Stat Exams 04/11/18 23:52 Taken UA W/MICROSCOPIC [URIN] Stat Lab 04/11/18 01:20 Ordered Sodium Chloride 0.9% [Saline Flush] Med 04/11/18 23:53 Active 10 ml FLUSH ASDIRECTED PRN Sodium Chloride 0.9% [Saline Flush] Med 04/11/18 23:53 Active 2.5 ml FLUSH ASDIRECTED PRN traMADol [Ultram] Med 04/12/18 02:18 Once 50 mg PO ONETIME ONE Saline Lock Insert [OM.PC] Stat Oth 04/11/18 23:52 Ordered Medication Orders Sodium Chloride (Saline Flush) 10 ml FLUSH ASDIRECTED PRN PRN Reason: Keep Vein Open Last Admin: 04/11/18 23:17 Dose: 10 ml Sodium Chloride (Saline Flush) 2.5 ml FLUSH ASDIRECTED PRN PRN Reason: Keep Vein Open Last Admin: 04/11/18 23:16 Dose: 2.5 ml Tramadol HCl (Ultram) 50 mg PO ONETIME ONE Stop: 04/12/18 02:19 Labs: Laboratory Tests 04/11/18 04/12/18 04/12/18 Range/Units 01:20 00:05 00:05 WBC 14.17 H (4.0-11.0) K/uL RBC 4.85 (4.30-5.90) M/uL Hgb 14.1 (12.0-16.0) g/dL Hct 42.2 (36.0-46.0) % MCV 87.0 (80.0-98.0) fL MCH 29.1 (27.0-32.0) pg MCHC 33.4 (31.0-37.0) g/dL RDW Std Deviation 43.2 (28.0-62.0) fl RDW Coeff of Clarence 14 (11.0-15.0) % Plt Count 457 H (150-400) K/uL MPV 9.00 (7.40-12.00) fL Add Manual Diff YES Neutrophils % (Manual) 66 (48.0-80.0) % Band Neutrophils % 1 % Lymphocytes % (Manual) 27 (16.0-40.0) % Monocytes % (Manual) 6 (0.0-15.0) % Nucleated RBC % 0.0 /100WBC Absolute Seg Neuts 9.4 H (1.4-5.7) Band Neutrophils # 0.1 Lymphocytes # (Manual) 3.8 H (0.6-2.4) Monocytes # (Manual) 0.9 H (0.0-0.8) Nucleated RBCs # 0 K/uL Sodium 141 (136-145) mmol/L Potassium 3.9 (3.5-5.1) mmol/L Chloride 105 (98-107) mmol/L Carbon Dioxide 27.6 (21.0-32.0) mmol/L BUN 17 (7.0-18.0) mg/dL Creatinine 0.9 (0.6-1.0) mg/dL Est Cr Clr Drug Dosing 56.68 mL/min Estimated GFR (MDRD) > 60.0 ml/min Glucose 108 H (74-106) mg/dL Calcium 8.9 (8.5-10.1) mg/dL Total Bilirubin 0.2 (0.2-1.0) mg/dL AST 19 (15-37) IU/L ALT 23 (14-63) IU/L Alkaline Phosphatase 94 (46-116) U/L Total Protein 6.7 (6.4-8.2) g/dL Albumin 3.1 L (3.4-5.0) g/dL Globulin 3.6 H (2.0-3.5) g/dL Albumin/Globulin Ratio 0.9 L (1.3-2.8) Amylase 44 (25-115) U/L Lipase 190 (73-393) U/L Urine Color YELLOW Urine Appearance CLEAR Urine pH 6.0 (5.0-8.0) Ur Specific [place] 1.010 (1.001-1.035) Urine Protein NEGATIVE (NEGATIVE) mg/dL Urine Glucose (UA) NEGATIVE (NEGATIVE) mg/dL Urine Ketones NEGATIVE (NEGATIVE) mg/dL Urine Occult Blood NEGATIVE (NEGATIVE) Urine Nitrite NEGATIVE (NEGATIVE) Urine Bilirubin NEGATIVE (NEGATIVE) Urine Urobilinogen 0.2 (<2.0) EU/dL Ur Leukocyte Esterase NEGATIVE (NEGATIVE) Urine RBC 0-2 (0-2/HPF) Urine WBC 0-3 (0-5/HPF) Ur Epithelial Cells FEW (NONE-FEW) Urine Bacteria FEW (NEGATIVE) Urine Mucus MODERATE (NONE-MOD) Meds: Medications Generic Name Dose Route Start Last Admin Trade Name Francisco PRN Reason Stop Dose Admin Sodium Chloride 10 ml 04/11/18 23:53 04/11/18 23:17 Saline Flush FLUSH 10 ml ASDIRECTED PRN Administration Keep Vein Open Sodium Chloride 2.5 ml 04/11/18 23:53 04/11/18 23:16 Saline Flush FLUSH 2.5 ml ASDIRECTED PRN Administration Keep Vein Open Tramadol HCl 50 mg 04/12/18 02:18 Ultram PO 04/12/18 02:19 ONETIME ONE Discontinued Medications Generic Name Dose Route Start Last Admin Trade Name Francisco PRN Reason Stop Dose Admin Fentanyl 50 mcg 04/11/18 23:53 04/12/18 00:02 Sublimaze IVPUSH 04/11/18 23:54 50 mcg ONETIME ONE Administration Sodium Chloride 1,000 mls @ 999 mls/hr 04/11/18 23:53 04/11/18 23:59 Normal Saline IV 04/12/18 00:53 999 mls/hr STAT ONE Administration Iopamidol 100 ml 04/12/18 01:17 04/12/18 01:18 Isovue Multipack-370 (76%) IVPUSH 04/12/18 01:18 100 ml ONETIME STA Administration Departure - Departure Time of Disposition: 02:20 Disposition: Home, Self-Care 01 Condition: Good Clinical Impression: Pelvic mass Abdominal pain Qualifiers: Abdominal location: left lower quadrant Qualified Code(s): R10.32 - Left lower quadrant pain - Discharge Information Referrals: PCP,None [Primary Care Provider] - Forms: ED Department Discharge Additional Instructions: The following information is given to patients seen in the emergency department who are being discharged to home. This information is to outline your options for follow-up care. We provide all patients seen in our emergency department with a follow-up referral. The need for follow-up, as well as the timing and circumstances, are variable depending upon the specifics of your emergency department visit. If you don't have a primary care physician on staff, we will provide you with a referral. We always advise you to contact your personal physician following an emergency department visit to inform them of the circumstance of the visit and for follow-up with them and/or the need for any referrals to a consulting specialist. The emergency department will also refer you to a specialist when appropriate. This referral assures that you have the opportunity for followup care with a specialist. All of these measure are taken in an effort to provide you with optimal care, which includes your followup. Under all circumstances we always encourage you to contact your private physician who remains a resource for coordinating your care. When calling for followup care, please make the office aware that this follow-up is from your recent emergency room visit. If for any reason you are refused follow-up, please contact the [facility] emergency department at and ask to speak to the emergency department charge nurse. [facility] Primary care- [place] [address] Please keep your appointment on Thursday with the counselor marriage and family at [facility] in [place] to evaluate your CT scan findings of the pelvic mass. Push hydration and monitor your temperature as your white blood cell count was slightly elevated here today. Return to ER as needed and as discussed. Use the tramadol you have been prescribed as needed for pain. Continue all home medications as before. - My Orders Last 24 Hours: My Active Orders 04/11/18 01:20 UA W/MICROSCOPIC [URIN] Stat 04/11/18 23:52 Oxygen Therapy, ED [RC] ASDIRECTED Pulse Oximetry [RC] ASDIRECTED Abdomen Pelvis w Cont [CT] Stat Saline Lock Insert [OM.PC] Stat 04/11/18 23:53 Sodium Chloride 0.9% [Saline Flush] 10 ml FLUSH ASDIRECTED PRN Sodium Chloride 0.9% [Saline Flush] 2.5 ml FLUSH ASDIRECTED PRN 04/12/18 02:18 traMADol [Ultram] 50 mg PO ONETIME ONE - Assessment/Plan Last 24 Hours: My Active Orders 04/11/18 01:20 UA W/MICROSCOPIC [URIN] Stat 04/11/18 23:52 Oxygen Therapy, ED [RC] ASDIRECTED Pulse Oximetry [RC] ASDIRECTED Abdomen Pelvis w Cont [CT] Stat Saline Lock Insert [OM.PC] Stat 04/11/18 23:53 Sodium Chloride 0.9% [Saline Flush] 10 ml FLUSH ASDIRECTED PRN Sodium Chloride 0.9% [Saline Flush] 2.5 ml FLUSH ASDIRECTED PRN 04/12/18 02:18 traMADol [Ultram] 50 mg PO ONETIME ONE
[2018-04-12 00:36] LABS: CHLORIDE,CL 105 mmol/L (98-107); SODIUM,NA 141 mmol/L (136-145)
[2018-04-12] MEDS ORDERED: Iopamidol 755 MG/ML 200 ML Multipack Bottle IVPUSH STA (01:17)
[2018-04-12] MEDS ORDERED: traMADol 50 MG Tab PO ONE (02:18)
--- NOTE | 2018-04-12 18:42 | CT ---
EXAM DATE: 04/11/18 PATIENT'S AGE: 62 Patient: ANABELA HALL Facility: [place], [place] Site . Site : [id number] Study: CT Abdomen/Pelvis [id number]/16/2018 1:21:15 AM Ordering Physician: Andrea Anthony Final Report: INDICATION: Left flank pain. History of pelvic mass. TECHNIQUE: CT abdomen and pelvis acquired with 100 cc Isovue 370 IV contrast. COMPARISON: March 16, 2018. FINDINGS: Lower chest: Unremarkable. Liver: Again demonstrated are multiple sub centimeter low-attenuation lesions which are too small to characterize. Gallbladder and bile ducts: Unremarkable. No stones or inflammation. No biliary dilatation. Pancreas: Unremarkable. No mass or inflammation. Spleen: Unremarkable. Normal in size. No masses. Adrenal glands: Unremarkable. No nodules. Kidneys: Multiple small bilateral cystic lesions are unchanged. No stones. No hydronephrosis or perinephric edema. GI tract: Unremarkable. Normal in caliber. No sign of mass or inflammation. Normal appendix. Vasculature: Unremarkable. Lymph nodes: No lymphadenopathy. Omentum/Peritoneum/Abdominal Wall: Unremarkable. No sign of mass or infiltration. No free air or significant free fluid. Pelvis: Again demonstrated is a large cystic mass which has increased in size measuring 19 x 15 cm on the axial series image 101, previously measuring 16 x 12 cm. Remainder of the pelvis is unremarkable. Bones: Unremarkable for age. IMPRESSION: 1. Interval increase in size of the previously seen cystic mass in the pelvis. This increase in size may or may not be responsible for the patient`s pain. 2. No other acute findings or changes from the prior exam. 3. Subcentimeter liver lesions are too small to characterize and remain indeterminate. Please note that all CT scans at this facility use dose modulation, iterative reconstruction, and/or weight-based dosing when appropriate to reduce radiation dose to as low as reasonably achievable. Dictated by Radames Barr MD @ Apr 12 2018 1:37AM (Electronic Signature) Report Signed by Proxy. [facility]
== END 2018-04-12 02:40 | disposition home or self-care (01) ==
LOC: MW.ED 23:06
DX: R19.00 Intra-abdominal and pelvic swelling, mass and lump, unspecified site (principal); R10.32 Left lower quadrant pain; J45.909 Unspecified asthma, uncomplicated; K21.9 Gastro-esophageal reflux disease without esophagitis; F17.210 Nicotine dependence, cigarettes, uncomplicated; Z79.899 Other long term (current) drug therapy
CPT/HCPCS: 36415; 74177; 80053; 81001; 82150; 83690; 85025; 96361; 96374; 99285; A9270; J3010; J7040; Q9967

== ENCOUNTER 2018-10-25 10:44 | Emergency (ER) | payer MEDICAID ==
--- NOTE | 2018-10-25 11:00 | EDM.PDOC ---
ED HPI GENERAL MEDICAL PROBLEM - General Chief Complaint: Head Injury Stated Complaint: FALL Time Seen by Provider: 10/25/18 11:00 Source of Information: Reports: Patient History Limitations: Reports: No Limitations - History of Present Illness INITIAL COMMENTS - FREE TEXT/NARRATIVE: HISTORY AND PHYSICAL: History of present illness: Patient is a 62-year-old female here with complaint of head injury. She states that she fell 2 days ago walking out of her apartment, slipped on the bottom step and fell backwards landing on her back and hitting her head. She states she did lose consciousness for an unknown amount of time and was told by her neighbors. Since then she has had a migraine is getting worse rather than better. She states she gets dizzy when she is walking downstairs, light sensitivity, blurry vision. She states she's had 2 episodes of vomiting. She reports a history of migraines but does not take prescriptions for this. She has taken Tylenol PM without relief. He is also complaining of left mid back pain, she is using a TENS unit for this. She denies lower extremity weakness, saddle anesthesia, loss of bowel or bladder control, fevers, chills, hematuria. She is not on anticoagulants. She states she usually gets a shot of toradol and this takes care of her headache. Review of systems: As per history of present illness and below otherwise all systems reviewed and negative. Past medical history: As per history of present illness and as reviewed below otherwise noncontributory. Surgical history: As per history of present illness and as reviewed below otherwise noncontributory. Social history: No reported history of drug or alcohol abuse. Family history: As per history of present illness and as reviewed below otherwise noncontributory. Physical exam: General: Patient sitting comfortably in no acute distress and nontoxic appearing HEENT: Atraumatic, normocephalic, pupils reactive, negative for conjunctival pallor or scleral icterus, mucous membranes moist, throat clear, neck supple, nontender, trachea midline. No meningeal signs. Lungs: Clear to auscultation, breath sounds equal bilaterally, chest nontender. Heart: S1S2, regular, negative for clicks, rubs, or overt murmur. Abdomen: Soft, nondistended, nontender. Negative for masses or hepatosplenomegaly. Negative for costovertebral tenderness. Pelvis: Stable nontender. Genitourinary: Deferred. Rectal: Deferred. Spine: Lower thoracic vertebral tenderness to palpation. Left lumbar paraspinal tenderness to palpation. Extremities: Atraumatic, negative for cords or calf pain. Neurovascular unremarkable. Neuro: Awake, alert, oriented. Cranial nerves II through XII unremarkable. Cerebellum unremarkable. Motor and sensory unremarkable throughout. Exam nonfocal. Notes: Diagnostics: Head CT, thoracolumbar xray, UA Therapeutics: Toradol 60mg IM Prescriptions: Declines Impression: Head injury, migraine, back pain Plan: 1. Heat or ice, motrin or tylenol as needed 2. Follow up with primary care provider 3. Return to ED as needed as discussed Definitive disposition and diagnosis as appropriate pending reevaluation and review of above. headache Pain Score (Numeric/FACES): 7 - Related Data Allergies Allergy/AdvReac Type Severity Reaction Status Date / Time No Known Allergies Allergy Verified 04/11/18 23:17 Home Meds: Home Meds . 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 - Infectious Disease History Infectious Disease History: Reports: None - Past Surgical History Head Surgeries/Procedures: Reports: None HEENT Surgical History: Reports: Cataract Surgery Cardiovascular Surgical History: Reports: None GI Surgical History: Reports: Colonoscopy Female Surgical History: Reports: None, Tubal Ligation Endocrine Surgical History: Reports: None Neurological Surgical History: Reports: None Musculoskeletal Surgical History: Reports: None Dermatological Surgical History: Reports: None Social & Family History - Family History Family Medical History: Noncontributory : Reports: Other (See Below) Other Family History: mother cervical cancer OBGYN: Reports: Other (See Below) Other OBGYN Family History: Mother of cervical cancer. Oncologic: Reports: Cervix - Caffeine Use Caffeine Use: Reports: Coffee ED ROS GENERAL - Review of Systems Review Of Systems: ROS reveals no pertinent complaints other than HPI. ED EXAM, HEAD INJURY - Physical Exam Exam: See Below (see dictation) Course - Vital Signs Last Recorded V/S: Last Vital Signs Temp 96.5 F 10/25/18 10:55 Pulse 90 10/25/18 10:55 Resp 18 10/25/18 10:55 BP 131/89 10/25/18 10:55 Pulse Ox 96 10/25/18 10:55 - Orders/Labs/Meds Labs: Laboratory Tests 10/25/18 Range/Units 11:07 Urine Color YELLOW Urine Appearance CLEAR Urine pH 5.5 (5.0-8.0) Ur Specific [place] 1.025 (1.001-1.035) Urine Protein NEGATIVE (NEGATIVE) mg/dL Urine Glucose (UA) NEGATIVE (NEGATIVE) mg/dL Urine Ketones NEGATIVE (NEGATIVE) mg/dL Urine Occult Blood NEGATIVE (NEGATIVE) Urine Nitrite NEGATIVE (NEGATIVE) Urine Bilirubin NEGATIVE (NEGATIVE) Urine Urobilinogen 0.2 (<2.0) EU/dL Ur Leukocyte Esterase NEGATIVE (NEGATIVE) Meds: Medications Discontinued Medications Generic Name Dose Route Start Last Admin Trade Name Francisco PRN Reason Stop Dose Admin Ketorolac Tromethamine 60 mg 10/25/18 12:32 Toradol IM 10/25/18 12:33 ONETIME ONE Departure - Departure Time of Disposition: 12:42 Disposition: Home, Self-Care 01 Condition: Good Clinical Impression: Head injury, Migraine, Back pain due to injury - Discharge Information Referrals: PCP,None [Primary Care Provider] - Forms: ED Department Discharge Care Plan Goals: The following information is given to patients seen in the emergency department who are being discharged to home. This information is to outline your options for follow-up care. We provide all patients seen in our emergency department with a follow-up referral. The need for follow-up, as well as the timing and circumstances, are variable depending upon the specifics of your emergency department visit. If you don't have a primary care physician on staff, we will provide you with a referral. We always advise you to contact your personal physician following an emergency department visit to inform them of the circumstance of the visit and for follow-up with them and/or the need for any referrals to a consulting specialist. The emergency department will also refer you to a specialist when appropriate. This referral assures that you have the opportunity for follow-up care with a specialist. All of these measure are taken in an effort to provide you with optimal care, which includes your follow-up. Under all circumstances we always encourage you to contact your private physician who remains a resource for coordinating your care. When calling for follow-up care, please make the office aware that this follow-up is from your recent emergency room visit. If for any reason you are refused follow-up, please contact the [facility] Emergency Department at and asked to speak to the emergency department charge nurse. [address] [address] 1. Heat or ice, motrin or tylenol as needed 2. Follow up with primary care provider 3. Return to ED as needed as discussed
--- NOTE | 2018-10-25 12:23 | CR ---
EXAMINATION: Thoracolumbar spine HISTORY: Fall COMPARISON: None TECHNIQUE: AP and lateral views FINDINGS: There is mild levocurvature of the lumbar spine. There is grade 1 anterolisthesis of L4 on L5 with mild facet arthritic changes. There is no definite fracture or acute osseous abnormality. SI joints are symmetric. Bone mineralization is otherwise normal. Minimal marginal osteophyte formation. IMPRESSION: Mild degenerative changes without acute findings.
--- NOTE | 2018-10-25 12:29 | CT ---
EXAMINATION: Non contrast CT head. Coronal and sagittal reformats. HISTORY: Pain FINDINGS: No evidence of intra or extra axial hemorrhage, mass, midline shift, hydrocephalus or edema. No hypoattenuation changes in the major vascular territories to suggest acute infarct. No abnormal intracranial calcifications are detected. No evidence of substantial vascular calcifications. Paranasal sinuses and mastoid air cells are well aerated without substantial findings. Orbits and globes are symmetric. Pituitary fossa appears unremarkable. Calvarium is intact. No evidence of skull fracture. IMPRESSION: No acute intracranial findings.
[2018-10-25] MEDS ORDERED: Ketorolac 60 MG/2 ML SDV IM ONE (12:32)
== END 2018-10-25 13:05 | disposition home or self-care (01) ==
LOC: MW.ED 10:44
DX: S09.90XA Unspecified injury of head, initial encounter (principal); G43.909 Migraine, unspecified, not intractable, without status migrainosus; E66.9 Obesity, unspecified; W19.XXXA Unspecified fall, initial encounter
CPT/HCPCS: 70450; 72080; 81003; 96372; 99284; J1885

== ENCOUNTER 2019-01-13 14:14 | Emergency (ER) | payer MEDICAID ==
--- NOTE | 2019-01-13 14:23 | EDM.PDOC ---
ED HPI GENERAL MEDICAL PROBLEM - General Chief Complaint: Back Pain or Injury Stated Complaint: back pain Time Seen by Provider: 01/13/19 14:15 Source of Information: Reports: Patient History Limitations: Reports: No Limitations - History of Present Illness INITIAL COMMENTS - FREE TEXT/NARRATIVE: HISTORY AND PHYSICAL: History of present illness: Patient is a 63-year-old female who presents to the emergency room today with complaints of right lumbar pain that radiates down her gluteal into the posterior thigh. She states she did have a fall in September 2018 which resulted in some back pain. She was evaluated through our emergency room at that time did have an x-ray. X-ray showed no acute findings. She states since that time she has had intermittent back pain associated with excessive activity or lifting for work purposes. Today she was moving several cases of soda while at work and started to develop right-sided lumbar back pain that radiates into her posterior thigh. She denies any new injury, trauma or falls. She has been ambulatory without any difficulty or deficits. Denies any urinary or fecal incontinence. Patient denies any fever, chills, headache, change in vision, syncope or near syncope. Denies any chest pain, back pain, shortness of breath or cough. Denies any abdominal pain, nausea, vomiting, diarrhea, constipation or dysuria. Has not noted any blood in urine or stool. Patient has been eating and drinking appropriately. Review of systems: As per history of present illness and below otherwise all systems reviewed and negative. Past medical history: As per history of present illness and as reviewed below otherwise noncontributory. Surgical history: As per history of present illness and as reviewed below otherwise noncontributory. Social history: See social history for further information Family history: As per history of present illness and as reviewed below otherwise noncontributory. Physical exam: General: Well-developed and well-nourished 63-year-old female. Alert and oriented. Nontoxic appearing and in no acute distress. HEENT: Atraumatic, normocephalic, pupils equal and reactive bilaterally, negative for conjunctival pallor or scleral icterus, mucous membranes moist, TMs normal bilaterally, throat clear, neck supple, nontender, trachea midline. No drooling or trismus noted. No meningeal signs. No hot potato voice noted. Lungs: Clear to auscultation, breath sounds equal bilaterally, chest nontender. Heart: S1S2, regular rate and rhythm without overt murmur Abdomen: Soft, nondistended, nontender. Negative for masses or hepatosplenomegaly. Negative for costovertebral tenderness. Pelvis: Stable nontender. Genitourinary: Deferred. Rectal: Deferred. Skin: Intact, warm, dry. No lesions or rashes noted. Extremities: Atraumatic, moves all extremities per self with difficulty or deficits, negative for cords or calf pain. Neurovascular unremarkable. C-spine/Back: No pinpoint vertebral tenderness upon palpation. No crepitus, step -offs or obvious deformities. She does have muscular tenderness above the right hip into the glute. Patient is fully ambulatory without difficulty or deficits. Denies any numbness or tingling to the affected extremity. Neuro: Awake, alert, oriented. Cranial nerves II through XII unremarkable. Cerebellum unremarkable. Motor and sensory unremarkable throughout. Exam nonfocal. Notes: Patient did have imaging in September 2018. Denies any new injury or trauma. We' ll give her Norflex and Toradol. She has had Toradol safely in the past without any side effects. Supportive care measures were reviewed and discussed. Voices understanding and is agreeable to plan of care. Denies any further questions or concerns at this time. Diagnostics: None Therapeutics: Norflex, Toradol Prescription: Flexeril Impression: Lumbar back pain with sciatica Plan: 1. The medication he received as an injection today does cause drowsiness so do not drive for the remaining day 2. When resting please lay on a flat firm surface. Limit your immobility to prevent muscle stiffness, get up to ambulate/move around/gentle stretching multiple times throughout the day. May alternate heat and ice to the painful area and 3. Tylenol as needed for back pain. Otherwise take the prescribed Flexeril as directed. Flexeril as a muscle relaxant, this medication may cause drowsiness a do not take it will driving her needing to be functioning outside of the house. 4. Please follow-up with your primary care provider as we discussed. 5. Return to the ED as needed and as discussed. Definitive disposition and diagnosis as appropriate pending reevaluation and review of above. back Pain Score (Numeric/FACES): 8 - Related Data Allergies Allergy/AdvReac Type Severity Reaction Status Date / Time codeine Allergy Swelling Verified 01/13/19 14:19 ibuprofen Allergy Swelling Verified 01/13/19 14:18 Home Meds: Home Meds Albuterol Sulfate [Albuterol Sulfate Hfa] 1 puff INH PRN 01/13/19 [History] Albuterol/Ipratropium [DuoNeb 3.0-0.5 MG/3 ML] 1 inh INH PRN 01/13/19 [History] Cyclobenzaprine [Flexeril] 10 mg PO TID PRN 7 Days #21 tab 01/13/19 [Rx] Past Medical History HEENT History: Reports: Cataract Other HEENT History: upper and lower dentures Cardiovascular History: Reports: None Respiratory History: Reports: Asthma Gastrointestinal History: Reports: GERD Genitourinary History: Reports: None 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 - Infectious Disease History Infectious Disease History: Reports: None - Past Surgical History Head Surgeries/Procedures: Reports: None HEENT Surgical History: Reports: Cataract Surgery Cardiovascular Surgical History: Reports: None GI Surgical History: Reports: Colonoscopy Female Surgical History: Reports: None, Tubal Ligation Endocrine Surgical History: Reports: None Neurological Surgical History: Reports: None Musculoskeletal Surgical History: Reports: None Dermatological Surgical History: Reports: None Social & Family History - Family History Family Medical History: Noncontributory : Reports: Other (See Below) Other Family History: mother cervical cancer OBGYN: Reports: Other (See Below) Other OBGYN Family History: Mother of cervical cancer. Oncologic: Reports: Cervix - Caffeine Use Caffeine Use: Reports: Coffee ED ROS GENERAL - Review of Systems Review Of Systems: ROS reveals no pertinent complaints other than HPI. ED EXAM,LOWER BACK PAIN/INJURY - Physical Exam Exam: See Below (See dictation) Course - Vital Signs Last Recorded V/S: Last Vital Signs Temp 98.0 F 04/18/19 14:19 Pulse 100 01/13/19 14:19 Resp 20 01/13/19 14:19 BP 122/81 01/13/19 14:19 Pulse Ox 96 01/13/19 14:19 - Orders/Labs/Meds Meds: Medications Discontinued Medications Generic Name Dose Route Start Last Admin Trade Name Freq PRN Reason Stop Dose Admin Ketorolac Tromethamine 60 mg 01/13/19 14:29 01/13/19 14:38 Toradol IM 01/13/19 14:30 60 mg ONETIME ONE Administration Orphenadrine Citrate 60 mg 01/13/19 14:28 01/13/19 14:38 Norflex IM 01/13/19 14:29 60 mg NOW STA Administration Departure - Departure Time of Disposition: 14:34 Disposition: Home, Self-Care 01 Clinical Impression: Back pain of lumbar region with sciatica - Discharge Information Prescriptions: Cyclobenzaprine [Flexeril] 10 mg PO TID PRN 7 Days #21 tab PRN Reason: Muscle Spasm Instructions: Sciatica, [id number] Referrals: PCP,Unknown [Primary Care Provider] - Forms: ED Department Discharge Additional Instructions: The following information is given to patients seen in the emergency department who are being discharged to home. This information is to outline your options for follow-up care. We provide all patients seen in our emergency department with a follow-up referral. The need for follow-up, as well as the timing and circumstances, are variable depending upon the specifics of your emergency department visit. If you don't have a primary care physician on staff, we will provide you with a referral. We always advise you to contact your personal physician following an emergency department visit to inform them of the circumstance of the visit and for follow-up with them and/or the need for any referrals to a consulting specialist. The emergency department will also refer you to a specialist when appropriate. This referral assures that you have the opportunity for follow-up care with a specialist. All of these measure are taken in an effort to provide you with optimal care, which includes your follow-up. Under all circumstances we always encourage you to contact your private physician who remains a resource for coordinating your care. When calling for follow-up care, please make the office aware that this follow-up is from your recent emergency room visit. If for any reason you are refused follow-up, please contact the [facility] Emergency Department at and asked to speak to the emergency department charge nurse. [facility] [address] [place] [address] [facility] [address] [place] [id number] 1. The medication you received as an injection today does cause drowsiness so do not drive for the remaining day 2. When resting please lay on a flat firm surface. Limit your immobility to prevent muscle stiffness, get up to ambulate/move around/gentle stretching multiple times throughout the day. May alternate heat and ice to the painful area and 3. Tylenol as needed for back pain. Otherwise take the prescribed Flexeril as directed. Flexeril as a muscle relaxant, this medication may cause drowsiness a do not take it will driving her needing to be functioning outside of the house. 4. Please follow-up with your primary care provider as we discussed. 5. Return to the ED as needed and as discussed.
[2019-01-13] MEDS ORDERED: Ketorolac 60 MG/2 ML SDV IM ONE (14:29)
== END 2019-01-13 15:16 | disposition home or self-care (01) ==
LOC: MW.ED 14:14
DX: M54.41 Lumbago with sciatica, right side (principal)
CPT/HCPCS: 96372; 99283; J1885; J2360

== ENCOUNTER 2019-09-06 17:07 | Emergency (ER) | payer MEDICAID, OTHER ==
--- NOTE | 2019-09-06 17:17 | EDM.PDOC ---
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 She states she has pain with flexion an extension of the finger. Patient denies any fever, chills, headache, change in vision, syncope or near syncope. Denies any chest pain, back pain, shortness of breath or cough. Denies any GI or symptoms. Patient has been eating and drinking appropriately. Review of systems: As per history of present illness and below otherwise all systems reviewed and negative. Past medical history: As per history of present illness and as reviewed below otherwise noncontributory. Surgical history: As per history of present illness and as reviewed below otherwise noncontributory. Social history: See social history for further information Family history: As per history of present illness and as reviewed below otherwise noncontributory. Physical exam: General: Well developed and well nourished 63 year old female. Nontoxic appearing and in no acute distress. HEENT: Atraumatic, normocephalic, pupils equal and reactive bilaterally, negative for conjunctival pallor or scleral icterus, mucous membranes moist, trachea midline. No drooling or trismus noted. No meningeal signs. No hot potato voice noted. Lungs: Clear to auscultation, breath sounds equal bilaterally, chest nontender. Heart: S1S2, regular rate and rhythm without overt murmur Abdomen: Soft, nondistended, nontender. Skin: Intact, warm, dry. No lesions or rashes noted. Extremities: Pain along the palmar surface of the 4th and 5th, moves all extremities per self without difficulty or deficits, cap refill less than 3 seconds. Strong radial pulse. Neurovascular unremarkable. Neuro: Awake, alert, oriented. Cranial nerves II through XII unremarkable. Cerebellum unremarkable. Motor and sensory unremarkable throughout. Exam nonfocal. Notes: X-ray shows no acute findings. Fiberglass splint given for comfort. Medication and supportive care measures were reviewed and discussed. Voices understanding and is agreeable to plan of care. Denies any further questions or concerns at this time. Diagnostics: Hand x-ray Therapeutics: Splint Prescription: Tramadol (#10) Impression: Right hand injury Plan: 1. Rest, ice, elevate the extremity as able. Please use the splint for comfort over then next 1-3 days. 2. Tylenol and/or ibuprofen as needed for pain management. 3. Please follow-up with the orthopedic provider and/or your primary care provider in the next 1-2 days. Return to the ED as needed and as discussed Definitive disposition and diagnosis as appropriate pending reevaluation and review of above. Right Finger-Little Pain Score (Numeric/FACES): 0 - Related Data Allergies Allergy/AdvReac Type Severity Reaction Status Date / Time codeine Allergy Swelling Verified 09/06/19 17:13 ibuprofen Allergy Swelling Verified 09/06/19 17:13 Home Meds: Home Meds Albuterol Sulfate [Albuterol Sulfate Hfa] 1 puff INH PRN 01/13/19 [History] Albuterol/Ipratropium [DuoNeb 3.0-0.5 MG/3 ML] 1 inh INH PRN 01/13/19 [History] Past Medical History HEENT History: Reports: Cataract Other HEENT History: upper and lower dentures Cardiovascular History: Reports: None Respiratory History: Reports: Asthma Gastrointestinal History: Reports: GERD Genitourinary History: Reports: None TIP PUNCHER History: Reports: , Other (See Below) Other TIP PUNCHER History: pelvic mass Musculoskeletal History: Reports: None Neurological History: Reports: Migraines Psychiatric History: Reports: None Endocrine/Metabolic History: Reports: Obesity/BMI 30+ Hematologic History: Reports: None Immunologic History: Reports: None Oncologic (Cancer) History: Reports: None Other Oncologic History: skin cancer (unsure what kind) Dermatologic History: Reports: Other (See Below) Other Dermatologic History: Mass to right side of back removed X 2 years ago. - Infectious Disease History Infectious Disease History: Reports: None - Past Surgical History Head Surgeries/Procedures: Reports: None HEENT Surgical History: Reports: Cataract Surgery Cardiovascular Surgical History: Reports: None GI Surgical History: Reports: Colonoscopy Female Surgical History: Reports: None, Tubal Ligation Endocrine Surgical History: Reports: None Neurological Surgical History: Reports: None Musculoskeletal Surgical History: Reports: None Dermatological Surgical History: Reports: None Social & Family History - Family History Family Medical History: Noncontributory : Reports: Other (See Below) Other Family History: mother cervical cancer OBGYN: Reports: Other (See Below) Other OBGYN Family History: Mother of cervical cancer. Oncologic: Reports: Cervix - Caffeine Use Caffeine Use: Reports: Coffee Review of Systems - Review of Systems Review Of Systems: Comprehensive ROS is negative, except as noted in HPI. ED EXAM, GENERAL - Physical Exam Exam: See Below (See dictation) Course - Vital Signs Last Recorded V/S: Last Vital Signs Temp 97.0 F 09/06/19 17:14 Pulse 88 09/06/19 17:14 Resp 19 09/06/19 17:14 BP 130/80 09/06/19 17:14 Pulse Ox 97 09/06/19 17:14 - Orders/Labs/Meds Orders: Active Orders 24 hr Category Date Time Status Hand Comp Min 3V Rt [CR] Stat Exams 09/06/19 17:09 Taken DME for Discharge [COMM] Stat Oth 09/06/19 17:49 Ordered Departure - Departure Time of Disposition: 17:50 Disposition: Home, Self-Care 01 Clinical Impression: Hand injury Qualifiers: Encounter type: initial encounter Laterality: right Qualified Code(s): S69.91XA - Unspecified injury of right wrist, hand and finger(s), initial encounter - Discharge Information Referrals: PCP,None [Primary Care Provider] - Forms: ED Department Discharge Additional Instructions: The following information is given to patients seen in the emergency department who are being discharged to home. This information is to outline your options for follow-up care. We provide all patients seen in our emergency department with a follow-up referral. The need for follow-up, as well as the timing and circumstances, are variable depending upon the specifics of your emergency department visit. If you don't have a primary care physician on staff, we will provide you with a referral. We always advise you to contact your personal physician following an emergency department visit to inform them of the circumstance of the visit and for follow-up with them and/or the need for any referrals to a consulting specialist. The emergency department will also refer you to a specialist when appropriate. This referral assures that you have the opportunity for follow-up care with a specialist. All of these measure are taken in an effort to provide you with optimal care, which includes your follow-up. Under all circumstances we always encourage you to contact your private physician who remains a resource for coordinating your care. When calling for follow-up care, please make the office aware that this follow-up is from your recent emergency room visit. If for any reason you are refused follow-up, please contact the [facility] Emergency Department at and asked to speak to the emergency department charge nurse. [facility] [address] [place] [id number] [facility] [address] [place] [id number] 1. Rest, ice, elevate the extremity as able. Please use the splint for comfort over then next 1-3 days. 2. Tylenol and/or ibuprofen as needed for pain management. 3. Please follow-up with the orthopedic provider and/or your primary care provider in the next 1-2 days. Return to the ED as needed and as discussed Sepsis Event Note - Focused Exam Vital Signs: Vital Signs Temp Pulse Resp BP Pulse Ox 09/06/19 17:14 97.0 F 88 19 130/80 97 Date Exam was Performed: 09/06/19 Time Exam was Performed: 17:49 - My Orders Last 24 Hours: My Active Orders 09/06/19 17:09 Hand Comp Min 3V Rt [CR] Stat 09/06/19 17:49 DME for Discharge [COMM] Stat - Assessment/Plan Last 24 Hours: My Active Orders 09/06/19 17:09 Hand Comp Min 3V Rt [CR] Stat 09/06/19 17:49 DME for Discharge [COMM] Stat
--- NOTE | 2019-09-06 17:50 | CR ---
INDICATION: Trauma 5th digit TECHNIQUE: Three views right hand COMPARISON: None FINDINGS: Bones: Alignment is normal. No fractures or bone lesions. Joint spaces: Degenerative changes PIP and DIP joint spaces more prominent involving the 5th digit. Soft tissues: Unremarkable. IMPRESSION: No definitive fractures. Degenerative changes PIP and DIP joint spaces more prominent involving the 5th digit. Dictated by Dg Banuelos MD @ 09/06/2019 5:48:15 PM Dictated by: Dg Banuelos MD @ 09/06/2019 17:48:34 (Electronically Signed)
== END 2019-09-06 18:04 | disposition home or self-care (01) ==
LOC: MW.ED 17:07
DX: S69.91XA Unspecified injury of right wrist, hand and finger(s), initial encounter (principal); J45.909 Unspecified asthma, uncomplicated; E66.9 Obesity, unspecified; Z68.28 Body mass index [BMI] 28.0-28.9, adult; Z88.8 Allergy status to other drugs, medicaments and biological substances; Z88.5 Allergy status to narcotic agent; W23.0XXA Caught, crushed, jammed, or pinched between moving objects, initial encounter
CPT/HCPCS: 29125; 73130-26-RT; 73130-RT; 99283-25

== ENCOUNTER 2020-04-27 09:39 | Emergency (ER) | payer SELFPAY ==
--- NOTE | 2020-04-27 10:05 | EDM.PDOC ---
<Jesika Fowler E - Last Filed: 04/27/20 10:25> ED HPI GENERAL MEDICAL PROBLEM - General Chief Complaint: Skin Complaint Stated Complaint: DOG BITE Time Seen by Provider: 04/27/20 09:40 Source of Information: Reports: Patient History Limitations: Reports: No Limitations - History of Present Illness INITIAL COMMENTS - FREE TEXT/NARRATIVE: HISTORY AND PHYSICAL: History of present illness: Patient is a 64-year-old female who presents to the emergency room today for wound reevaluation. She states she had a dog bite in February 2020. She had been following with a surgeon in [place] for wound care. She has been on antibiotics since April 11, 2020. She was informed that if she had any wound changes she needed to be evaluated in the emergency room. She states this morning before her shower she took her dressing off and felt that she had bloody drainage coming from the site. The current dressing which is 4 hours old has 1 to 2 drops of serosanguineous fluid on the dressing pad. She does have an appointment next week with her surgeon for reevaluation. Patient denies any fever, chills, headache, change in vision, syncope or near syncope. Denies any c hest pain, back pain, shortness of breath or cough. Denies any GI or symptoms. Patient has been eating and drinking appropriately. Review of systems: As per history of present illness and below otherwise all systems reviewed and negative. Past medical history: As per history of present illness and as reviewed below otherwise noncontributory. Surgical history: As per history of present illness and as reviewed below otherwise noncontributory. Social history: See social history for further information Family history: As per history of present illness and as reviewed below otherwise n oncontributory. Physical exam: General: Well-developed and well-nourished 64-year-old female. Alert and oriented. Nontoxic-appearing and in no acute distress. HEENT: Atraumatic, normocephalic, pupils equal and reactive bilaterally, negative for conjunctival pallor or scleral icterus, mucous membranes moist, trachea midline. No drooling or trismus noted. No meningeal signs. No hot potato voice noted. Lungs: Clear to auscultation, breath sounds equal bilaterally, chest nontender. Heart: S1S2, regular rate and rhythm without overt murmur Abdomen: Soft, nondistended, nontender. Skin: Quarter size wound to the right lateral calf, no surrounding erythema noted. No fluctuance. Otherwise skin is intact, warm, dry. No lesions or rashes noted. Extremities: Atraumatic, moves all extremities per self without difficulty or deficits, negative for cords or calf pain. Neurovascular unremarkable. Neuro: Awake, alert, oriented. Cranial nerves II through XII unremarkable. Cerebellum unremarkable. Motor and sensory unremarkable throughout. Exam nonfocal. Notes: The wound that the patient is concerned about appears to not need any intervention. There is no evidence of cellulitis or abscess. I did speak with our general surgeon about the wound, she agrees that the patient continues wound care at home and follow-up with her provider on as she already has arranged. We discussed signs and symptoms that would prompt her to return to the emergency room. Supportive care measures were reviewed and discussed. Voices understanding and is agreeable to plan of care. Denies any further questions or concerns at this time. Diagnostics: None Therapeutics: Wound Care Prescription: None Impression: Wound re-check Plan: 1. Your wound today looks good. Continue to provide wound care as you have been directed. If your symptoms should worsen, new symptoms develop or any of the signs and symptoms we discussed should arise please return to the emergency room or call 911 (if needed). 2. Continue your antibiotic. 3. Keep your appointment with the surgeon and follow up as you already have arranged. Definitive disposition and diagnosis as appropriate pending reevaluation and review of above. - Related Data Allergies Allergy/AdvReac Type Severity Reaction Status Date / Time codeine Allergy Swelling Verified 04/27/20 10:07 ibuprofen Allergy Swelling Verified 04/27/20 10:07 Home Meds: Home Meds Albuterol Sulfate [Albuterol Sulfate Hfa] 1 puff INH ASDIRECTED PRN 01/13/19 [History] Albuterol/Ipratropium [DuoNeb 3.0-0.5 MG/3 ML] 1 inh INH ASDIRECTED PRN 01/13/19 [History] Clindamycin HCl 300 mg PO Q6HR 04/27/20 [History] ED ROS GENERAL - Review of Systems Review Of Systems: Comprehensive ROS is negative, except as noted in HPI. ED EXAM, SKIN/RASH Exam: See Below (See dictation) Departure - Departure Time of Disposition: 10:24 Disposition: Home, Self-Care 01 Clinical Impression: Encounter for wound re-check - Discharge Information Instructions: Wound Care, Adult Referrals: PCP,Not In Area [Primary Care Provider] - Forms: ED Department Discharge Additional Instructions: The following information is given to patients seen in the emergency department who are being discharged to home. This information is to outline your options for follow-up care. We provide all patients seen in our emergency department with a follow-up referral. The need for follow-up, as well as the timing and circumstances, are variable depending upon the specifics of your emergency department visit. If you don't have a primary care physician on staff, we will provide you with a referral. We always advise you to contact your personal physician following an emergency department visit to inform them of the circumstance of the visit and for follow-up with them and/or the need for any referrals to a consulting specialist. The emergency department will also refer you to a specialist when appropriate. This referral assures that you have the opportunity for follow-up care with a specialist. All of these measure are taken in an effort to provide you with optimal care, which includes your follow-up. Under all circumstances we always encourage you to contact your private physician who remains a resource for coordinating your care. When calling for follow-up care, please make the office aware that this follow-up is from your recent emergency room visit. If for any reason you are refused follow-up, please contact the [facility] Emergency Department at and asked to speak to the emergency department charge nurse. [facility] [address] [place] [address] [id number] [address] [address] Thank you for choosing the [facility] emergency department in [place] for your medical needs today. It was a pleasure caring for you. You were seen in the emergency department for wound recheck. 1. Your wound today looks good. Continue to provide wound care as you have been directed. If your symptoms should worsen, new symptoms develop or any of the signs and symptoms we discussed should arise please return to the emergency room or call 911 (if needed). 2. Continue your antibiotic. 3. Keep your appointment with the surgeon and follow up as you already have arranged. <Arley Young - Last Filed: 04/27/20 10:36> Past Medical History HEENT History: Reports: Cataract Other HEENT History: upper and lower dentures Cardiovascular History: Reports: None Respiratory History: Reports: Asthma Gastrointestinal History: Reports: GERD Genitourinary History: Reports: None CAREER RESOURCE TECHNICIAN History: Reports: , Other (See Below) Other CAREER RESOURCE TECHNICIAN History: pelvic mass Musculoskeletal History: Reports: None Neurological History: Reports: Migraines Psychiatric History: Reports: None Endocrine/Metabolic History: Reports: Obesity/BMI 30+ Hematologic History: Reports: None Immunologic History: Reports: None Oncologic (Cancer) History: Reports: None Other Oncologic History: skin cancer (unsure what kind) Dermatologic History: Reports: Other (See Below) Other Dermatologic History: Mass to right side of back removed X 2 years ago. - Infectious Disease History Infectious Disease History: Reports: None - Past Surgical History Head Surgeries/Procedures: Reports: None HEENT Surgical History: Reports: Cataract Surgery Cardiovascular Surgical History: Reports: None GI Surgical History: Reports: Colonoscopy Female Surgical History: Reports: None, Tubal Ligation Endocrine Surgical History: Reports: None Neurological Surgical History: Reports: None Musculoskeletal Surgical History: Reports: None Dermatological Surgical History: Reports: None Social & Family History - Family History Family Medical History: Noncontributory : Reports: Other (See Below) Other Family History: mother cervical cancer OBGYN: Reports: Other (See Below) Other OBGYN Family History: Mother of cervical cancer. Oncologic: Reports: Cervix - Caffeine Use Caffeine Use: Reports: Coffee Course - Vital Signs Last Recorded V/S: Last Vital Signs Temp 36.1 C 04/27/20 10:04 Pulse 77 04/27/20 10:04 Resp 18 04/27/20 10:04 BP 119/80 04/27/20 10:04 Pulse Ox 96 04/27/20 10:04 Sepsis Event Note (ED) - Focused Exam Vital Signs: Vital Signs Temp Pulse Resp BP Pulse Ox 04/27/20 10:04 36.1 C 77 18 119/80 96 MLP Sign Off - Signature Requirements MLP Sign Off: Yes :: LIV Fowler saw this patient alone, I was not involved in their care. I am erroneously named/attached in this chart.
--- NOTE | 2020-04-27 10:35 | PCM.SN.2 ---
- Free Text/Narrative Note: My name is attached to the provider note for this patient but I was not involved in their patient care course of treatment, this was erroneous. Seen exclusively by LIV Fowler.
== END 2020-04-27 10:32 | disposition home or self-care (01) ==
LOC: MW.ED 09:39
DX: Z48.01 Encounter for change or removal of surgical wound dressing (principal); J45.909 Unspecified asthma, uncomplicated; E66.9 Obesity, unspecified; Z98.51 Tubal ligation status; Z88.5 Allergy status to narcotic agent; Z88.6 Allergy status to analgesic agent; Z98.890 Other specified postprocedural states; Z68.30 Body mass index [BMI] 30.0-30.9, adult
CPT/HCPCS: 99282

== ENCOUNTER 2024-04-01 13:59 | Emergency (ER) | payer SELFPAY | END 2024-04-01 14:15 | disposition left against medical advice (07) | LOC: MW.ED 13:59 | DX: Z53.21 Procedure and treatment not carried out due to patient leaving prior to being seen by health care provider (principal) ==

== ENCOUNTER 2024-04-01 15:33 | Emergency (ER) | payer SELFPAY ==
[2024-04-01] MEDS: Albuterol/Ipratropium 3.0-0.5 MG/3 ML Neb Soln NEB ONE (15:55)
== END 2024-04-01 17:00 ==
LOC: MW.ED 15:33
DX: J44.9 Chronic obstructive pulmonary disease, unspecified (principal); E66.9 Obesity, unspecified; Z79.899 Other long term (current) drug therapy; Z88.5 Allergy status to narcotic agent; Z88.6 Allergy status to analgesic agent
CPT/HCPCS: 94640; 99285; J7620-GY